=== PATIENT | male | born 1960 | race Caucasian/White ===

== ENCOUNTER 2020-01-06 18:40 | Outpatient (CLI) | payer SELFPAY ==
[2020-01-06 20:22] LABS: Estmated Average Glucose 186; Hemoglobin A1C 8.1 % (4.0-6.0)
[2020-01-06 20:28] LABS: Alanine Aminotransferase 35 U/L (0-41); Alkaline Phosphatase 89 IU/L (40-130); Anion Gap 15.7 (5-19); Aspartate Amino Transferase 32 U/L (0-40); Blood Urea Nitrogen 12 mg/dL (6-20); Calcium 9.5 mg/dL (8.5-10.5); Carbon Dioxide 30 mmol/L (22-29); Chloride 96 mmol/L (98-107); Globulin 3.6 g/dL (1.3-4.6); Glomerular Filtration Rate 99.3 mL/min (90-130); Glucose 118 mg/dL (65-115); Osmolality Calculated 283 mOsm/kg (285-295); Potassium 3.7 mmol/L (3.5-5.1); Sodium 138 mmol/L (136-145); Total Bilirubin 0.4 mg/dL (0.15-1.2); Total Protein 7.6 g/dL (6.6-8.7)
== END 2020-01-06 18:41 | disposition home or self-care (01) ==
LOC: LAB 18:41
PROVIDERS: PCP Family Medicine; Visit Provider General Practice
DX: I10 Essential (primary) hypertension (principal); E78.00 Pure hypercholesterolemia, unspecified; I25.10 Atherosclerotic heart disease of native coronary artery without angina pectoris; K21.9 Gastro-esophageal reflux disease without esophagitis
CPT/HCPCS: 80053; 83036

== ENCOUNTER 2020-07-25 23:07 | Emergency (ER) | payer SELFPAY ==
[2020-07-25 23:12] VITALS: BP 194/106; PULSE 77; RESP 32; TEMP 36.8; O2SAT 94; BMI 43.6
[2020-07-25 23:15] VITALS: BP 194/106; RESP 28; O2SAT 93
--- NOTE | 2020-07-25 23:24 | XR_ITS ---
WS: [id number] XR chest 1V portable [id number] REASON FOR EXAM: syncope FINDINGS: Most recent previous examination of 06/24/2019. The heart and mediastinum are within normal limits. There is a reticular interstitial and groundglass infiltrative density in both the left lower lobe, r ight lower lobe and in the right mid lung peripherally. This is associated with small dense linear ar eas. Moderately severe degenerative spondylosis in the mid and lower thoracic spine. XR/XR chest 1V portable [id number] IMPRESSION: Infiltrates of unknown chronicity as described above. Findings are suspicious f or acute/subacute pneumonitis, particularly Covid.
--- NOTE | 2020-07-25 23:26 | W.ED.SOB ---
HPI - SOB/Dyspnea General: Chief Complaint: Shortness of Breath/Dyspnea Stated Complaint: SOB Time Seen by Provider: 07/25/20 23:16 Source: patient and family (spouse) Mode of arrival: ambulatory Limitations: no limitations History of Present Illness: HPI Narrative: 59-year-old male patient presents to the emergency department with 2 to 3-week history of shortness of breath. He reports worsening symptoms tonight. Can not lay down to sleep due to shortness of breath. He reports mild cough, recent evaluation with his healthcare provider at the [facility], placed on Lasix which helped for 2 to 3 days then stopped working. He reports mild chest pain, intermittent. History of coronary artery disease with stent placement, reports congestive heart failure but has never had symptoms. Denies fever chills, he reports feels full in his lungs. MD elicited complaint: shortness of breath and cough Pertinent past history: COPD, congestive heart failure and other (CAD) Onset (ago): week(s) (2-3) Timing: constant and progressively worsening Severity: moderate Exacerbating factors: lying flat, exertion, coughing and talking Relieving factors: upright position Known history of: COPD and congestive heart failure Associated symptoms: Reports chest congestion, cough and orthopnea; Deny abdominal pain, chest pain, diaphoresis, fever(s), nausea, palpitations or vomiting Treatment prior to arrival: other (lasix) Review of Systems General: Reports: 10 or more systems reviewed and unremarkable except in HPI and below Const: Reports: chills, fatigue and change in sleep pattern; Denies: fever(s), change in appetite, night sweats or diaphoresis Eyes: Denies: change in vision, blurry vision, eye discomfort or eye redness ENMT: Denies: throat pain, hoarseness, swelling of lips/tongue, bleeding gums, dental pain, disequilibrium, nasal discharge, nasal congestion, nasal obstruction or post nasal drip Card: Reports: edema, swelling of feet/ankles, dyspnea on exertion and orthopnea; Denies: chest pain, palpitations, irregular heart rhythm or leg pain with exertion Resp: Reports: chest congestion; Denies: dyspnea, productive cough, non-productive cough or wheezing GI: Reports: early satiety, diarrhea and constipation; Denies: abdominal pain, nausea, vomiting, heartburn, pain on defecation or hematochezia : Denies: dysuria Musc: Denies: neck pain, back pain, joint pain, joint swelling, muscle cramps or muscle weakness Skin/Breast: Denies: rash, pruritus, erythema, changing lesions or changes in skin color Neuro: Denies: headache(s), weakness in extremities or behavioral changes Psych: Denies: anxiety, depression or irritability Gio/Lymph: Denies: easy bruising PFSH ED PFSH: Medical History CAD (coronary artery disease) COPD (chronic obstructive pulmonary disease) Surgical History (Updated 07/25/20 @ 23:33 by DORIS Cruz) H/O umbilical hernia repair Stented coronary artery Social History (Updated 07/26/20 @ 03:50 by DORIS Cruz) Smoking and tobacco status: current every day smoker cigarettes Packs smoked per day: 1 Household members: spouse Marital status: Physical Exam Const: COMMON NORMALS: patient oriented x3, alert and well nourished GENERAL APPEARANCE: cooperative, well kempt, well developed, in distress, anxious and well hydrated; not comfortable NUTRITIONAL APPEARANCE: obese ORIENTATION/CONSCIOUSNESS: Yes awake, Yes oriented to person, Yes oriented to place and Yes oriented to time HENMT: COMMON NORMALS: normocephalic, atraumatic, Normal external nose present and moist oral mucous membranes HEAD & SCALP: normal to inspection, normocephalic and atraumatic NOSE: Normal external nose present MOUTH: Normal oral and palatal mucosa present THROAT: posterior oropharynx normal Eye: COMMON NORMALS: Equal, round and reactive pupils present, EOMs intact bilaterally and conjunctivae normal GENERAL EYE: appearance normal, both eyes and all related structures PERIORBITAL: periorbital findings abnormal positive bilateral (edema) periorbital swelling EYELID: eyelids normal CONJUNCTIVA: Yes conjunctivae normal PUPIL: Yes Equal, round and reactive pupils present Neck/C-Spine: COMMON NORMALS: full ROM and no lymphadenopathy GENERAL: Yes normal visual inspection and Yes trachea midline CERVICAL SPINE: Yes cervical ROM normal Lymph: LYMPHATIC: no lymphadenopathy noted Chest: COMMONS NORMALS: normal inspection of the chest and normal palpation of entire chest wall CHEST: No localized rib tenderness with anteroposterior compression Resp: EFFORT & INSPECTION: Yes symmetric chest movement, Yes tachypneic, Yes respiratory distress, Yes labored, Yes Actively coughing, Yes uses accessory muscles, Yes audible wheezes, No tracheal deviation and No prolonged expiratory phase AUSCULTATION: rhonchi, wheezes and diminished lung sounds bilateral in the lower lung ding Cardio: COMMON NORMALS: regular rate, regular rhythm, S1 normal heart sound present, S2 normal heart sound present and Peripheral pulses 2+ throughout RATE: regular rate RHYTHM: regular rhythm HEART SOUNDS: S1 normal heart sound present and S2 normal heart sound present PERIPHERAL PULSES: Peripheral pulses 2+ throughout GI: INSPECTION: Yes normal to inspection, No abdominal wall ecchymosis, Yes abdominal distension, Yes central obesity, Yes scar, No visible herniation, No visible pulsation and No Fluid wave present PALPATION: Yes Firmness to palpation present (GI) and No Guarding due to palpation present (GI) PERCUSSION: no fluid wave : COMMON NORMALS: Yes no CVA tenderness BLADDER/KIDNEY EXAM: Yes no CVA tenderness Back/Pelvis: COMMON NORMALS: no CVA tenderness and thoracic and lumbar spine normal to inspection Extremity: COMMON NORMALS: normal to inspection and capillary refill normal Neuro: COMMON NORMALS: patient oriented x3 and no focal motor deficits SENSORIUM/ORIENTATION: Yes alert, Yes oriented to person, Yes oriented to place and Yes oriented to time Psych: COMMON NORMALS: mental status grossly normal, Normal thought process present and cooperative APPEARANCE: Yes well kempt ACTIVITY/MOTOR BEHAVIOR: Yes appropriate eye contact THOUGHT PROCESS: Normal thought process present Skin: COMMON NORMALS: no rashes or lesions noted and turgor normal GENERAL SKIN EXAM: no rashes or lesions noted and turgor normal Course ED course: 59-year-old male patient presents to the emergency department with exacerbation of heart failure. Respiratory rate 32-40 upon arrival to the ED with oxygen saturation 90 to 92%. He was placed on BiPAP, 40 mg of Lasix IV administered, diuresed 2000 cc here in the ED, marked improvement noted, BiPAP weaned, O2 saturation 89 to 90%, patient was placed on 2 L nasal cannula with O2 saturation 94 to 97%. CT scan of the chest with IV contrast, CTA PE protocol with pulmonary edema and bilateral small pleural effusions. BNP was noted to be elevated, 790. Post Lasix administration, facial edema, abdominal firmness improved, patient reports feeling better. Patient was updated on serology and radiology testing with plan of care for admission due to respiratory distress he encountered upon arrival. He is not able to tolerate nitroglycerin topically, developed skin itching, NTG removed and itching resolved. I discussed with Dr. Koehler findings of serology and radiology results as well as patient progression that occurred here in the ED. Consultations: Consultation #1: Dr Koehler- [facility] discussed, serology and radiology results discussed, discussed tachypnea, rate 32-40 upon arrival to the ED, now off BiPAP and much improved, diuresed 2000 cc after 40 mg Lasix IV administered. Agrees to admit due to tachypnea, respiratory distress and CHF exacerbation. Time: 03:30 Vital Signs: Vital signs: Vital Signs Temperature 98.2 F 07/25/20 23:12 Pulse Rate 70 07/26/20 03:13 Respiratory Rate 19 H 07/26/20 03:13 Blood Pressure 148/70 07/26/20 03:13 Pulse Oximetry 98 07/26/20 03:13 MDM - SOB/Dyspnea Lab Data: Labs: Lab Results 07/26/20 07/26/20 07/26/20 Range/Units 00:00 00:00 00:00 WBC 6.5 (4.0-10.0) 10^3/ uL RBC 5.16 (4.1-5.3) 10^6/u L Hgb 14.8 (11.7-16.6) g/dL Hct 47.6 (42.0-52.0) % MCV 92.2 (80-94) fL MCH 28.7 (28.0-34.0) pg MCHC 31.1 (30.0-36.0) g/dL RDW 14.3 (12.1-15.1) % Plt Count 158 (130-400) 10^3/c mm MPV 10.6 H (7.4-10.4) fL Neut % (Auto) 69.4 % Lymph % (Auto) 19.8 % [place] % (Auto) 7.9 % Eos % (Auto) 1.9 % Baso % (Auto) 0.5 % Neut # (Auto) 4.49 (1.8-7.7) 10^3/u L Lymph # (Auto) 1.3 (0.8-4.8) 10^3/u L [place] # (Auto) 0.5 (0.2-0.9) 10^3/u L Eos # (Auto) 0.1 (0.0-0.8) 10^3/u L Baso # (Auto) 0.0 (0.0-0.1) 10^3/u L Nucleated RBC % (a uto) 0 % Nucleated RBCs # 0.0 /100WBC PT 13.50 (12.1-14.9) SECO NDS INR 1.00 (0.8-1.2) APTT 30.7 (23.9-36.7) SECO NDS D-Dimer 0.71 H (0-0.59) ug/mIFE U Specimen Type Sample Site ABG pH (7.35-7.45) ABG pCO2 (35-45) mmHg ABG pO2 (80.0-100.0) mmH g ABG HCO3 (22-26) mmol/L ABG O2 Saturation ABG Base Excess (-2.0-2.0) mmol/ L Nathanael Test A-a O2 Gradient (5-10) mmHg Hematocrit (42-52) % Hgb O2 Saturation (95-100) % Carboxyhemoglobin (0.4-20.1) %THgb Methemoglobin (0.4-1.5) % Total Hemoglobin (14-18) g/dL Ionized Calcium (1.1-1.4) mmol/L O2 Delivery Device FiO2 % Continuous Improvement Lead ID Sodium 137 (136-145) mmol/L Potassium 4.0 (3.5-5.1) mmol/L Chloride 99 (98-107) mmol/L Carbon Dioxide 29 (22-29) mmol/L Anion Gap 13.0 (5-19) BUN 16 (6-20) mg/dL Creatinine 0.8 (0.7-1.2) mg/dL GFR Calculation 99.3 (90-130) mL/min Glucose 122 H (65-115) mg/dL Calculated Osmolal ity 286 (285-295) mOsm/k g Lactate (0.5-2.2) mmol/L Calcium 8.3 L (8.5-10.5) mg/dL Total Bilirubin 0.7 (0.15-1.2) mg/dL AST 19 (0-40) U/L ALT 29 (0-41) U/L Alkaline Phosphata se 82 (40-130) IU/L Troponin T Baselin e (0-15) ng/L Troponin T 120 Min [place] (0-15) ng/L Delta Troponin T (0-10) ABS# NT-Pro-B Natriuret Pep 790 H (0-125) pg/mL Total Protein 6.7 (6.6-8.7) g/dL Albumin 3.9 (3.5-5.2) g/dL Globulin 2.8 (1.3-4.6) g/dL Lipase 22 (13-60) U/L 07/26/20 07/26/20 07/26/20 Range/Units 00:00 00:00 01:10 WBC (4.0-10.0) 10^3/ uL RBC (4.1-5.3) 10^6/u L Hgb (11.7-16.6) g/dL Hct (42.0-52.0) % MCV (80-94) fL MCH (28.0-34.0) pg MCHC (30.0-36.0) g/dL RDW (12.1-15.1) % Plt Count (130-400) 10^3/c mm MPV (7.4-10.4) fL Neut % (Auto) % Lymph % (Auto) % [place] % (Auto) % Eos % (Auto) % Baso % (Auto) % Neut # (Auto) (1.8-7.7) 10^3/u L Lymph # (Auto) (0.8-4.8) 10^3/u L [place] # (Auto) (0.2-0.9) 10^3/u L Eos # (Auto) (0.0-0.8) 10^3/u L Baso # (Auto) (0.0-0.1) 10^3/u L Nucleated RBC % (a uto) % Nucleated RBCs # /100WBC PT (12.1-14.9) SECO NDS INR (0.8-1.2) APTT (23.9-36.7) SECO NDS D-Dimer (0-0.59) ug/mIFE U Specimen Type Arterial Sample Site Radial, right ABG pH 7.38 (7.35-7.45) ABG pCO2 50.4 H (35-45) mmHg ABG pO2 75.7 L (80.0-100.0) mmH g ABG HCO3 29.9 H (22-26) mmol/L ABG O2 Saturation 96.0 ABG Base Excess 3.5 H (-2.0-2.0) mmol/ L Nathanael Test Pos A-a O2 Gradient 8.0 (5-10) mmHg Hematocrit 47.8 (42-52) % Hgb O2 Saturation 91.8 L (95-100) % Carboxyhemoglobin 3.6 (0.4-20.1) %THgb Methemoglobin 0.8 (0.4-1.5) % Total Hemoglobin 15.6 (14-18) g/dL Ionized Calcium 1.0 L (1.1-1.4) mmol/L O2 Delivery Device Bipap FiO2 28.0 % Continuous Improvement Lead ID Jlg Sodium 140.0 (136-145) mmol/L Potassium 3.6 (3.5-5.1) mmol/L Chloride (98-107) mmol/L Carbon Dioxide (22-29) mmol/L Anion Gap (5-19) BUN (6-20) mg/dL Creatinine (0.7-1.2) mg/dL GFR Calculation (90-130) mL/min Glucose 122.0 H (65-115) mg/dL Calculated Osmolal ity (285-295) mOsm/k g Lactate 1.3 (0.5-2.2) mmol/L Calcium (8.5-10.5) mg/dL Total Bilirubin (0.15-1.2) mg/dL AST (0-40) U/L ALT (0-41) U/L Alkaline Phosphata se (40-130) IU/L Troponin T Baselin e 18 H (0-15) ng/L Troponin T 120 Min [place] (0-15) ng/L Delta Troponin T (0-10) ABS# NT-Pro-B Natriuret Pep (0-125) pg/mL Total Protein (6.6-8.7) g/dL Albumin (3.5-5.2) g/dL Globulin (1.3-4.6) g/dL Lipase (13-60) U/L 07/26/20 Range/Units 01:50 WBC (4.0-10.0) 10^3/ uL RBC (4.1-5.3) 10^6/u L Hgb (11.7-16.6) g/dL Hct (42.0-52.0) % MCV (80-94) fL MCH (28.0-34.0) pg MCHC (30.0-36.0) g/dL RDW (12.1-15.1) % Plt Count (130-400) 10^3/c mm MPV (7.4-10.4) fL Neut % (Auto) % Lymph % (Auto) % [place] % (Auto) % Eos % (Auto) % Baso % (Auto) % Neut # (Auto) (1.8-7.7) 10^3/u L Lymph # (Auto) (0.8-4.8) 10^3/u L [place] # (Auto) (0.2-0.9) 10^3/u L Eos # (Auto) (0.0-0.8) 10^3/u L Baso # (Auto) (0.0-0.1) 10^3/u L Nucleated RBC % (a uto) % Nucleated RBCs # /100WBC PT (12.1-14.9) SECO NDS INR (0.8-1.2) APTT (23.9-36.7) SECO NDS D-Dimer (0-0.59) ug/mIFE U Specimen Type Sample Site ABG pH (7.35-7.45) ABG pCO2 (35-45) mmHg ABG pO2 (80.0-100.0) mmH g ABG HCO3 (22-26) mmol/L ABG O2 Saturation ABG Base Excess (-2.0-2.0) mmol/ L Nathanael Test A-a O2 Gradient (5-10) mmHg Hematocrit (42-52) % Hgb O2 Saturation (95-100) % Carboxyhemoglobin (0.4-20.1) %THgb Methemoglobin (0.4-1.5) % Total Hemoglobin (14-18) g/dL Ionized Calcium (1.1-1.4) mmol/L O2 Delivery Device FiO2 % Continuous Improvement Lead ID Sodium (136-145) mmol/L Potassium (3.5-5.1) mmol/L Chloride (98-107) mmol/L Carbon Dioxide (22-29) mmol/L Anion Gap (5-19) BUN (6-20) mg/dL Creatinine (0.7-1.2) mg/dL GFR Calculation (90-130) mL/min Glucose (65-115) mg/dL Calculated Osmolal ity (285-295) mOsm/k g Lactate (0.5-2.2) mmol/L Calcium (8.5-10.5) mg/dL Total Bilirubin (0.15-1.2) mg/dL AST (0-40) U/L ALT (0-41) U/L Alkaline Phosphata se (40-130) IU/L Troponin T Baselin e (0-15) ng/L Troponin T 120 Min [place] 17.28 H (0-15) ng/L Delta Troponin T -0.72 L (0-10) ABS# NT-Pro-B Natriuret Pep (0-125) pg/mL Total Protein (6.6-8.7) g/dL Albumin (3.5-5.2) g/dL Globulin (1.3-4.6) g/dL Lipase (13-60) U/L Imaging Data^: CT Chest: Radiologist's impression: [address] [address] [address] Scan Report Signed Patient: Stephen Garrett Unit #: [id number] : 1960 Age/Sex: 59 / M ADM Date: 07/25/20 Loc: ER Room/Bed: Attending Dr: Ordering Provider/Ordering MD: Elvira See Date of Service: 07/26/20 Procedure(s): CT angio chest PE protcl [id number] Accession Number(s): [id number] Report Number: [id number] PROCEDURE INFORMATION: Exam: CT Angiography Chest With Contrast Exam date and time: 07/26/2020 1:04 AM Age: 59 years old Clinical indication: Dyspnea and shortness of breath; Prior surgery; Surgery type: Cardiac stent; Patient HX: SOB and dyspnea. Elevated ddimer; Additional info: SOB, elevated d-dimer TECHNIQUE: Imaging protocol: Computed tomographic angiography of the chest with intravenous contrast. 3D rendering (Not supervised by radiologist): MIP and/or 3D reconstructed images were created by the technologist. Radiation optimization: All CT scans at this facility use at least one of these dose optimization techniques: automated exposure control; mA and/or kV adjustment per patient size (includes targeted exams where dose is matched to clinical indication); or iterative reconstruction. Contrast material: OMNI 350; Contrast volume: 68 ml; Contrast route: INTRAVENOUS (IV); COMPARISON: CTA Chest-Pulmonary Emb [id number] 05/09/2017 11:32 PM RADIATION DOSE METRICS: Total DLP (mGy-cm): 908.48 FINDINGS: Pulmonary arteries: No pulmonary embolus. Aorta: Unremarkable. No aortic aneurysm. No aortic dissection. Lungs: Mild pulmonary edema is noted. Bibasilar subsegmental atelectasis is appreciated. Pleural space: Small bilateral pleural effusions are noted. No pneumothorax. Heart: The heart is normal in size. Coronary artery calcifications are noted. Lymph nodes: Mild right hilar and mediastinal lymphadenopathy is noted. Bones/joints: Unremarkable. No acute fracture. Soft tissues: Unremarkable. CT/CT angio chest PE protcl [id number] IMPRESSION: 1. No pulmonary embolus. 2. Mild pulmonary edema and small bilateral pleural effusions. 3. Coronary arteries disease. Radiation Dose CTDIVOL = (mGy): DLP = 908.48 (mGy-cm) Dictated By: Tyron Price MD Signed By: Tyron Price MD Signed Date/Time: 07/26/20250 DD/ 9 EKG Data^: EKG 1: EKG Interpretation Date: 07/25/20 EKG interpretation time: 23:25 Other EKG Comments: Sinus rhythm, possible anterior myocardial infarction, abnormal ECG, ventricular rate 72 EKG 2: EKG Interpretation Date: 07/26/20 EKG interpretation time: 02:43 Prior EKG tracings: available for review Other EKG Comments: Sinus rhythm, abnormal ECG, ventricular rate 66 Discharge Plan Discharge Referrals: [facility], [Primary Care Provider] - Coding Level of Care Code ED Small Business Banking Officer for Chg Fwd Exam Comprehensive
[2020-07-25 23:30] VITALS: BP 189/85; PULSE 86; RESP 22; O2SAT 93
[2020-07-25 23:55] VITALS: RESP 24; O2SAT 100
[2020-07-25] MEDS: morphine 4 mg/mL SDV 1 mL IVP (23:55)
[2020-07-26] VITALS (7 sets, daily range): BP systolic 148–162; BP diastolic 70–79; PULSE 66–92; RESP 13–24; O2SAT 92–100
[2020-07-26] MEDS: FUROsemide 10 mg/mL SDV 4mL 40 MG IVP (00:25)
[2020-07-26] MEDS: nitroglycerin 1 gm/inch oint Pkt 1 INCH TOPICAL (00:33)
[2020-07-26 00:53] LABS: Basophils % 0.5 %; D Dimer 0.71 ug/mIFEU (0-0.59); Eosinophils # 0.1 10^3/uL (0.0-0.8); Eosinophils % 1.9 %; Hematocrit 47.6 % (42.0-52.0); Hemoglobin 14.8 g/dL (11.7-16.6); Lymphocytes # 1.3 10^3/uL (0.8-4.8); Lymphocytes % 19.8 %; Mean Corpuscular HGB Conc 31.1 g/dL (30.0-36.0); Mean Corpuscular Hemoglobin 28.7 pg (28.0-34.0); Mean Corpuscular Volume 92.2 fL (80-94); Mean Platelet Volume 10.6 fL (7.4-10.4); Monocytes # 0.5 10^3/uL (0.2-0.9); Monocytes % 7.9 %; Neutrophils # 4.49 10^3/uL (1.8-7.7); Neutrophils % 69.4 %; Nucleated Red Blood Cells % 0 %; Platelet Count 158 10^3/cmm (130-400); Red Blood Count 5.16 10^6/uL (4.1-5.3); Red Cell Distribution Width 14.3 % (12.1-15.1); White Blood Count 6.5 10^3/uL (4.0-10.0)
--- NOTE | 2020-07-26 00:58 | CTR_ITS ---
PROCEDURE INFORMATION: Exam: CT Angiography Chest With Contrast Exam date and time: 07/26/2020 1:04 AM Age: 59 years old Clinical indication: Dyspnea and shortness of breath; Prior surgery; Surgery type: Cardiac stent; Patient HX: SOB and dyspnea. Elevated ddimer; Additional info: SOB, elevated d-dimer TECHNIQUE: Imaging protocol: Computed tomographic angiography of the chest with intravenous contrast. 3D rendering (Not supervised by radiologist): MIP and/or 3D reconstructed images were created by the technologist. Radiation optimization: All CT scans at this facility use at least one of these dose optimization techniques: automated exposure control; mA and/or kV adjustment per patient size (includes targeted exams where dose is matched to clinical indication); or iterative reconstruction. Contrast material: OMNI 350; Contrast volume: 68 ml; Contrast route: INTRAVENOUS (IV); COMPARISON: CTA Chest-Pulmonary Emb [id number] 05/09/2017 11:32 PM RADIATION DOSE METRICS: Total DLP (mGy-cm): 908.48 FINDINGS: Pulmonary arteries: No pulmonary embolus. Aorta: Unremarkable. No aortic aneurysm. No aortic dissection. Lungs: Mild pulmonary edema is noted. Bibasilar subsegmental atelectasis is appreciated. Pleural space: Small bilateral pleural effusions are noted. No pneumothorax. Heart: The heart is normal in size. Coronary artery calcifications are noted. Lymph nodes: Mild right hilar and mediastinal lymphadenopathy is noted. Bones/joints: Unremarkable. No acute fracture. Soft tissues: Unremarkable. CT/CT angio chest PE protcl [id number] IMPRESSION: 1. No pulmonary embolus. 2. Mild pulmonary edema and small bilateral pleural effusions. 3. Coronary arteries disease. Radiation Dose CTDIVOL = (mGy): DLP = 908.48 (mGy-cm)
[2020-07-26 01:00] LABS: Lactate (Lactic Acid level) 1.3 mmol/L (0.5-2.2)
[2020-07-26 01:02] LABS: Troponin(5th) Baseline 18 ng/L (0-15)
[2020-07-26 01:03] LABS: Partial Thromboplastin Time 30.7 SECONDS (23.9-36.7)
[2020-07-26 01:10] LABS: Alanine Aminotransferase 29 U/L (0-41); Albumin Level 3.9 g/dL (3.5-5.2); Alkaline Phosphatase 82 IU/L (40-130); Aspartate Amino Transferase 19 U/L (0-40); Blood Urea Nitrogen 16 mg/dL (6-20); Calcium 8.3 mg/dL (8.5-10.5); Carbon Dioxide 29 mmol/L (22-29); Chloride 99 mmol/L (98-107); Globulin 2.8 g/dL (1.3-4.6); Glomerular Filtration Rate 99.3 mL/min (90-130); Glucose 122 mg/dL (65-115); Lipase 22 U/L (13-60); NT Pro B Type Natriuretic Pept 790 pg/mL (0-125); Osmolality Calculated 286 mOsm/kg (285-295); Sodium 137 mmol/L (136-145); Total Bilirubin 0.7 mg/dL (0.15-1.2); Total Protein 6.7 g/dL (6.6-8.7)
[2020-07-26 01:21] LABS: ABG PCO2 50.4 mmHg (35-45); ABG PH Result 7.38 (7.35-7.45); Arterial Blood Gas Hematocrit 47.8 % (42-52); Base Excess ABG 3.5 mmol/L (-2.0-2.0); Blood Gas Allen Test Pos; Blood Gas Sample Site Radial, right; Blood Gas Sample Type Arterial; Carboxyhemoglobin 3.6 %THgb (0.4-20.1); HCO3 ABG 29.9 mmol/L (22-26); HGB O2 Sat 91.8 % (95-100); Methemoglobin 0.8 % (0.4-1.5); PO2 ABG 75.7 mmHg (80.0-100.0); Potassium Level - ABG 3.6 mmol/L (3.5-5.0); Total Hemoglobin 15.6 g/dL (14-18)
[2020-07-26 01:23] LABS: Oxygen Device BIPAP
--- NOTE | 2020-07-26 01:25 | ECG_ITS ---
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 Measurements Intervals Transfer Rate: 66 P: 45 SD: 177 QRS: -33 QRSD: 102 T: 63 QT: 427 QTc: 449 Interpretive Statements SINUS RHYTHM MARKED LEFT AXIS DEVIATION [QRS AXIS < -30] ANTEROSEPTAL MYOCARDIAL INFARCTION [40+ ms Q WAVE IN V1-V4], OF INDETERMINATE AGE Diffuse nonspecific T wave changes compared to ECG 06/24/2019 12:52:53 Left-axis deviation now present Myocardial infarct finding now present Sinus bradycardia no longer present Electronically Signed On 07-26-2020 9:56:43 ENGLISH TEACHER by Lynette Kenyon M.D. [id number]
--- NOTE | 2020-07-26 01:26 | PC.NURSE ---
pt ECG leads readjusted
[2020-07-26] MEDS: iohexol 350 mg/mL 100 mL Btl IV (01:39)
[2020-07-26 02:28] LABS: Troponin 5 2HR 17.28 ng/L (0-15)
[2020-07-26 02:51] LABS: Troponin 5 2HR Delta -0.72 ABS# (0-10)
--- NOTE | 2020-07-26 03:38 | P.HP_ITS ---
Providers/Chief Complaint Primary Care Provider: [facility] Chief Complaint: SOB History of Present Illness Stephen Garrett is a 59 year old male Medications/Allergies Allergies Allergy/AdvReac Type Severity Reaction Status Date / Time No Known Allergies Allergy Verified 07/25/20 23:13 PFSH Acute PFSH: Medical History CAD (coronary artery disease) COPD (chronic obstructive pulmonary disease) Surgical History (Updated 07/25/20 @ 23:33 by DORIS Cruz) H/O umbilical hernia repair Stented coronary artery Vitals/I&O/Wt Last Vital Signs Temp 98.2 F 07/25/20 23:12 Pulse 70 07/26/20 03:13 Resp 19 H 07/26/20 03:13 BP 148/70 07/26/20 03:13 Pulse Ox 98 07/26/20 03:13 Weight last 48 hrs Weight 115.212 kg Data : 07/26/20 00:00 07/26/20 00:00 Coding Level of Care Code Acute Supervisor Capacitor Processing for Bro Tapia
--- NOTE | 2020-07-26 04:49 | PC.NURSE ---
This RN agrees with deputy sheriff k9 handler assessment
== END 2020-07-26 04:50 | disposition home or self-care (01) ==
PROVIDERS: Emergency Provider Nurse Practitioner Family
DX: R06.02 Shortness of breath (principal); I25.10 Atherosclerotic heart disease of native coronary artery without angina pectoris; J44.9 Chronic obstructive pulmonary disease, unspecified; F17.210 Nicotine dependence, cigarettes, uncomplicated
CPT/HCPCS: 12345; 36600; 71045; 71275; 80051; 80053; 82330; 82805; 83605; 83690; 83880; 84484; 85025; 85378; 85610; 85730; 93005; 94660; 96374; 99283; 99284; J1940; J2270; Q9967

== ENCOUNTER 2020-10-10 15:40 | Outpatient (CLI) | payer OTHER, SELFPAY ==
--- NOTE | 2020-10-10 15:45 | USCV_ITS ---
Stephen Garrett Age: 59 Gender: M : 1960 Exam Date: 10/10/2020 15:57 Ordering Phys: Juanita Mcdonald MD ([email or web address]) Technologist: Kelly Mayo [place] [facility] [place]ication: HEART FAILURE BP: 165 / 86 HR: 69 Rhythm: Sinus Technical Quality: ADEQUATE MEASUREMENTS (Male / Female) Normal Values 2D ECHO LV Diastolic Diameter PLAX 5.8 cm 4.2 - 5.9 / 3.9 - 5.3 cm LV Systolic Diameter PLAX 4.1 cm LV Chamber Size 4.2 cm IVS Diastolic Thickness 1.0 cm 0.6 - 1.0 / 0.6 - 0.9 cm IVS Systolic Thickness 1.4 cm LVPW Diastolic Thickness 0.9 cm 0.6 - 1.0 / 0.6 - 0.9 cm LVPW Systolic Thickness 1.9 cm RV Chamber Size 3.3 cm LVOT Diameter 2.0 cm LV Ejection Fraction 2D Teich 54.8 % LA Diameter 4.0 cm LA Width 3.2 cm LA Height 5.0 cm RA Width 2.5 cm RA Height 4.1 cm M-MODE LV Diastolic Diameter MM 5.7 cm 4.2 - 5.9 / 3.9 - 5.3 cm LV Systolic Diameter MM 3.9 cm LV Ejection Fraction MM Teich 58.7 % IVS Diastolic Thickness MM 0.9 cm 0.6 - 1.0 / 0.6 - 0.9 cm IVS Systolic Thickness MM 1.5 cm LVPW Diastolic Thickness MM 0.9 cm 0.6 - 1.0 / 0.6 - 0.9 cm LVPW Systolic Thickness MM 1.5 cm Aortic Annulus Diameter 3.0 cm LA Ao Ratio MM 1.4 MV E Point Septal Separation 1.6 cm DOPPLER AV Peak Velocity 183.0 cm/s LVOT Peak Velocity 75.0 cm/s AV Area Cont Eq vti 1.3 cm squared AV Area Cont Eq pk 1.3 cm squared MV Area PHT 3.9 cm squared Mitral E to A Ratio 1.7 MV E' Velocity 62.5 cm/s Mitral E to MV E' Ratio 19.7 Mitral E to LV E' Lateral Ratio 17.4 Mitral E to LV E' Septal Ratio 22.7 PV Peak Velocity 68.0 cm/s RV Acceleration Time 0.1 s RV Ejection Time 0.2 s RV AcT/ET 0.4 FINDINGS Left Ventricle Left ventricle is upper limit of normal size. LV ejection fraction around 55%.Grade III/IV diastolic dysfunction (restrictive filling pattern), severely elevated filling pressures. Right Ventricle The right ventricle is normal in size and function. Right Atrium Normal right atrial size. Left Atrium Mildly increased left atrial size. Mitral Valve Structurally normal mitral valve without significant stenosis or prolapse. There is no mitral regurgitation. Aortic Valve Trace to mild aortic valve regurgitation. Thickened aortic valve. Tricuspid Valve No gross abnormalities noted Pulmonic Valve No gross abnormalities noted Pericardium Normal pericardium without effusion. Aorta Normal ascending aorta dimension. CONCLUSIONS Left ventricle is upper limit of normal size. LV ejection fraction around 55%. Grade III/IV diastolic dysfunction (restrictive filling pattern), severely elevated filling pressures. Mildly increased left atrial size. Structurally normal mitral valve without significant stenosis or prolapse. There is no mitral regurgitation. Trace to mild aortic valve regurgitation. Thickened aortic valve. There is no pericardial effusion. There are no intracardiac masses. No previous study is available for comparison. Dr Lynette Kenyon MD [facility] (Electronically Signed) Final Date: 12 October 2020 09:02 S
== END 2020-10-10 15:41 | disposition home or self-care (01) ==
LOC: RAD 15:40
PROVIDERS: Visit Provider Internal Medicine Cardiovascular Disease
DX: I50.9 Heart failure, unspecified (principal); I35.1 Nonrheumatic aortic (valve) insufficiency
CPT/HCPCS: 80048; 83880; 87635; 93306

== ENCOUNTER 2020-10-17 14:11 | Outpatient (CLI) | payer OTHER, SELFPAY ==
--- NOTE | 2020-10-17 14:38 | PFTS_ITS ---
Date of Study:10/17/20 Date of Dictation: MECHANICS: Forced vital capacity (FVC) is reduced. Forced expiratory volume in one second (FEV1) is reduced. FEV1/FVC is normal. FLOW VOLUME LOOP: Narrowed with mild scooping. LUNG VOLUMES: Total lung capacity (TLC) is normal. Residual volume (RV) is elevated. DIFFUSING CAPACITY FOR CARBON MONOXIDE: Normal. INTERPRETATION: The pulmonary function tests are consistent with nonspecific ventilatory limitation. The prebronchodilator spirometry is consistent with mild restriction however, the lung volume measurements do not support any restrictive lung disease. This is likely secondary to a combination of obstructive and restrictive ventilatory defects. Lung volumes are consistent with air trapping. Gas exchange (DLCO) is normal. MTDD
== END 2020-10-17 14:12 | disposition home or self-care (01) ==
LOC: RT 14:13
PROVIDERS: Visit Provider Internal Medicine Pulmonary Disease
DX: R06.02 Shortness of breath (principal)
CPT/HCPCS: 94010; 94726; 94729

== ENCOUNTER → 2021-01-30 13:28 | Outpatient (BNVA) | payer OTHER, SELFPAY | PROVIDERS: Visit Provider Orthopaedic Surgery | DX: M54.2 Cervicalgia (principal); M48.02 Spinal stenosis, cervical region | CPT/HCPCS: 72050 ==

== ENCOUNTER 2021-02-22 15:29 | Outpatient (CLI) | payer OTHER, SELFPAY ==
--- NOTE | 2021-02-22 16:00 | MR_ITS ---
WS: [id number] MRI CERVICAL SPINE NONCONTRAST HISTORY: M48.02 - Spinal stenosis, cervical region COMPARISON: 01/30/2021 Technique: Multiplanar, multisequence noncontrast imaging of the cervical spine. Mild straightening of the normal cervical lordosis. Mild disc desiccation and narrowing most significant at C5-6 and C6-7. Signal within the cord is norm al. Craniocervical junction, C1 and C2 relationship, odontoid process and soft tissues are normal. C2-C3: Moderate size central disc protrusion with near contact on the ventral cervical cord. Very mil d central and foraminal stenosis. C3-C4: Mild bilateral facet joint arthritis. Small foraminal osteophytes without stenosis. C4-C5: Mild annular disc bulging and osteophytic ridging with facet arthritis. Very mild LEFT foramin al narrowing. C5-C6: Moderate annular disc bulging and osteophytic ridging. Central disc protrusion. Moderate size disc osteophyte complex in the LEFT foramen. An additional moderate size disc osteophyte complex in t he RIGHT foramen. Moderate central with moderate to severe bilateral foraminal stenosis. Stenosis ledbetter s appear slightly greater on the RIGHT. C6-C7: Diffuse annular disc bulging and osteophytic ridging. Mild central stenosis with moderate bila teral foraminal stenosis, RIGHT greater than LEFT. C7-T1: Mild annular disc bulging with very mild encroachment into the RIGHT foramen. Paraspinal soft tissue are normal. MR/MR cervical spin wo con* [id number] IMPRESSION: 1. Moderate central with moderate to severe bilateral foraminal stenosis, RIGH T greater than LEFT at C5-6. 2. Mild central and moderate bilateral foraminal stenosis, RIGHT greater than LEFT at C6-7. 3. Central disc protrusion at C2-3 with mild central and foraminal stenosis. 4. Multilevel mild to moderate facet arthritis throughout the cervical spine.
== END 2021-02-22 15:30 | disposition home or self-care (01) ==
LOC: RADSHAW 15:32
PROVIDERS: PCP Family Medicine; Visit Provider Orthopaedic Surgery
DX: M48.02 Spinal stenosis, cervical region (principal); M50.21 Other cervical disc displacement, high cervical region; M47.812 Spondylosis without myelopathy or radiculopathy, cervical region
CPT/HCPCS: 72141

== ENCOUNTER 2021-05-02 20:44 | Emergency (ER) | payer OTHER, SELFPAY ==
[2021-05-02 21:02] VITALS: BP 144/78; PULSE 74; RESP 20; TEMP 36.2; O2SAT 95; BMI 41.3
--- NOTE | 2021-05-02 21:15 | XRR_ITS ---
PROCEDURE INFORMATION: Exam: XR Chest Exam date and time: 05/02/2021 9:15 PM Age: 60 years old Clinical indication: Cough and shortness of breath; Additional info: Dyspnea TECHNIQUE: Imaging protocol: XR of the chest. Views: 1 view. COMPARISON: CR XR chest 1V portable [id number] 07/25/2020 11:24 PM FINDINGS: Lungs: Unremarkable. No consolidation. Pleural spaces: Unremarkable. No pleural effusion. No pneumothorax. Heart/Mediastinum: Unremarkable. No cardiomegaly. Bones/joints: Unremarkable. XR/XR chest 1V portable [id number] IMPRESSION: No acute disease.
--- NOTE | 2021-05-02 21:15 | ECG_ITS ---
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 Measurements Intervals [place] Rate: 73 P: 47 [place]: 188 QRS: 32 QRSD: 104 T: -7 QT: 407 QTc: 450 Interpretive Statements SINUS RHYTHM LOW QRS VOLTAGE IN PRECORDIAL LEADS [QRS DEFLECTION < 1.0 mV IN CHEST LEADS] ANTEROSEPTAL MYOCARDIAL INFARCTION , OF INDETERMINATE AGE [40+ ms Q WAVE IN V1-V4] INTERPRETATION BASED ON A DEFAULT AGE OF 40 YEARS Compared to ECG 07/26/2020 02:42:34 Low QRS voltage now present Left-axis deviation no longer present T-wave abnormality no longer present Myocardial infarct finding still present Electronically Signed On 05-02-2021 23:34:57 CDT by Lynette Kenyon M.D. [id number]
--- NOTE | 2021-05-02 21:40 | ED_ITS ---
Documented by User: Carlos A Womack MD 05/04/21 14:12 HPI - General Adult General: Chief complaint: General Medical Stated complaint: coughing, sob Time Seen by Provider: 05/02/21 21:38 History of Present Illness: HPI narrative: Mr. Garrett is a 60-year-old gentleman with complex past medical history including hypertension, hyperlipidemia, diabetes, CAD status post PCI, heart failure with preserved ejection fraction who presents emergency department due to generalized malaise. He has been at his baseline health however woke up this morning with headache, shortness of breath, cough, aches and pains, chills, and nausea. Additionally has noted some lower extremity swelling. Overall the course of symptoms is worsening. The intensity is moderate. He has tried home medications without significant relief. He reports compliance with his medication regimen with exception of COPD medications (Spiriva) which she cannot currently afford and has been out of for approximately 1 month. He has been vaccinated against Covid and has no known sick contacts. 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 No acute distress. Eyes - PERRL, no conjunctival injection ENMT - Atraumatic external nose and ears. Moist mucous membranes NECK - supple. trachea midline CARDIOVASCULAR - regular rate and rhythm. Peripheral pulses 2+ and equal RESPIRATORY -mildly course to auscultation bilaterally. No retractions or accessory muscle use. ABDOMEN/GI - Nontender/Nondistended. No tenderness to percussion or evidence of peritonitis MSK - Extremities without obvious deformity or tenderness to palpation SKIN - Warm, Dry NEURO - alert and appropriately oriented. Moves all extremities equally. PSYCH - Appropriate mood and affect Course ED course: - Patient was seen and evaluated by me at bedside - Patient placed on cardiac monitors, IV access obtained - Initial evaluation notable for mildly ill appearance, no acute distress. - Patient history likely COPD exacerbation versus infectious etiology - Chest x-ray without lobar consolidation - Labs pending - Patient care handed off to Dr Wright pending completion of laboratory studies Vital Signs: Vital signs: Vital Signs Temperature 97.2 F L 05/02/21 21:02 Pulse Rate 73 05/03/21 00:39 Respiratory Rate 20 H 05/03/21 00:39 Blood Pressure 148/78 05/03/21 00:39 Pulse Oximetry 97 05/03/21 00:39 MDM - General Adult Medical Records: Attestation: I reviewed the patient's medical records. Lab Data: Attestation: I reviewed the patient's lab results. Labs: Lab Results 05/02/21 05/02/21 05/02/21 22:35 22:35 22:35 WBC 6.0 10^3/uL 10^3/ uL (4.0-10.0) RBC 4.86 10^6/uL 10^6 /uL (4.1-5.3) Hgb 14.6 g/dL g/dL (11.7-16.6) Hct 45.4 % % (42.0-52.0) MCV 93.4 fl fl (80-94) MCH 30.0 pg pg (28.0-34.0) MCHC 32.2 g/dL g/dL (30.0-36.0) RDW 13.8 % % (12.1-15.1) Plt Count 165 10^3/cmm 10^3 /cmm (130-400) MPV 9.7 fL fL (7.4-10.4) Neut % (Auto) 66.7 % % Lymph % (Auto) 21.7 % % [place] % (Auto) 8.8 % % Eos % (Auto) 1.8 % % Baso % (Auto) 0.7 % % Neut # (Auto) 4.03 10^3/uL 10^3 /uL (1.8-7.7) Lymph # (Auto) 1.3 10^3/uL 10^3/ uL (0.8-4.8) [place] # (Auto) 0.5 10^3/uL 10^3/ uL (0.2-0.9) Eos # (Auto) 0.1 10^3/uL 10^3/ uL (0.0-0.8) Baso # (Auto) 0.0 10^3/uL 10^3/ uL (0.0-0.1) Nucleated RBC % (a uto) 0 % % Nucleated RBCs # 0.0 /100WBC /100W BC Sodium 139 mmol/L mmol/L (136-145) Potassium 3.5 mmol/L mmol/L (3.5-5.1) Chloride 99 mmol/L mmol/L (98-107) Carbon Dioxide 29 mmol/L mmol/L (22-29) Anion Gap 14.5 (5-19) BUN 13 mg/dL mg/dL (6-20) Creatinine 0.9 mg/dL mg/dL (0.7-1.2) GFR Calculation 86.4 mL/min L mL/ min (90-130) Glucose 99 mg/dL mg/dL (65-115) Calculated Osmolal ity 288 mOsm/kg mOsm/ kg (285-295) Calcium 7.7 mg/dL L mg/dL (8.5-10.5) Total Bilirubin 0.4 mg/dL mg/dL (0.15-1.2) AST 25 U/L U/L (0-40) ALT 28 U/L U/L (0-41) Alkaline Phosphata se 74 IU/L IU/L (40-130) Troponin T Baselin e 15 ng/L ng/L (0-15) Troponin T 120 Min [place] Troponin T C-Reactive Protein 7.0 mg/L H mg/L (0.0-4.9) NT-Pro-B Natriuret Pep 224 pg/mL H pg/mL (0-125) Total Protein 6.9 g/dL g/dL (6.6-8.7) Albumin 3.8 g/dL g/dL (3.5-5.2) Globulin 3.1 g/dL g/dL (1.3-4.6) Procalcitonin 0.09 ng/mL ng/mL (0-0.5) SARS-CoV-2 Ag (Rap id) 05/02/21 05/02/21 23:00 23:40 WBC RBC Hgb Hct MCV MCH MCHC RDW Plt Count MPV Neut % (Auto) Lymph % (Auto) [place] % (Auto) Eos % (Auto) Baso % (Auto) Neut # (Auto) Lymph # (Auto) [place] # (Auto) Eos # (Auto) Baso # (Auto) Nucleated RBC % (a uto) Nucleated RBCs # Sodium Potassium Chloride Carbon Dioxide Anion Gap BUN Creatinine GFR Calculation Glucose Calculated Osmolal ity Calcium Total Bilirubin AST ALT Alkaline Phosphata se Troponin T Baselin e Troponin T 120 Min [place] 14.60 ng/L ng/L (0-15) [place] Troponin T -0.40 ABS# L ABS# (0-10) C-Reactive Protein NT-Pro-B Natriuret Pep Total Protein Albumin Globulin Procalcitonin SARS-CoV-2 Ag (Rap id) Negative (Negative) EKG Data^: EKG 1: Attestation: I personally reviewed and interpreted this EKG as follows: EKG interpretation date: 05/02/21 EKG interpretation time: 21:19 Interpretation: Twelve-lead EKG shows a regular sinus rhythm at a rate of 73. TN interval 188, QRS duration 104, QTc 433. Normal axis Interpretation: Sinus rhythm, nonspecific ST segment abnormalities. Computer generated interpretation: Chest X-Ray 05/02/21 21:15 IMPRESSION: No acute disease. EKG 2: Computer generated interpretation: Chest X-Ray 05/02/21 21:15 IMPRESSION: No acute disease. Discharge Plan Discharge Patient Disposition: Home Clinical Impression: Bronchitis Condition: Stable Prescriptions: New prednisone 50 mg tablet 50 mg PO DAILY Qty: 5 RF: 0 albuterol sulfate 90 mcg/actuation HFA aerosol inhaler 2 inh INHALATION Q6H PRN (Reason: shortness of breath or wheezing) Qty: 8 RF: 0 doxycycline hyclate 100 mg tablet 100 mg PO BID 7 Days Qty: 14 RF: 0 No Action metformin 1,000 mg tablet 1,000 mg PO BID RF: 0 pregabalin [Lyrica] 150 mg capsule 150 mg PO BID RF: 0 meloxicam 15 mg tablet 15 mg PO DAILY RF: 0 omeprazole 20 mg capsule,delayed release(DR/EC) 20 mg PO DAILY RF: 0 omega-3 fatty acids [Fish Oil Concentrate] 1,000 mg capsule 1,000 mg PO DAILY RF: 0 nitroglycerin 0.4 mg tablet, sublingual 0.4 mg sublingual Q5M PRNRF: 0 metolazone 2.5 mg tablet 2.5 mg PO DAILY Qty: 30 RF: 2 potassium chloride [Klor-Con M20] 20 mEq tablet,ER particles/crystals 20 meq PO DAILY Qty: 90 RF: 2 metoprolol tartrate 50 mg tablet 50 mg PO BID Qty: 180 RF: 2 clopidogrel 75 mg tablet 75 mg PO DAILY Qty: 90 RF: 3 losartan 100 mg tablet 150 mg PO DAILY Qty: 90 RF: 2 Incruse Ellipta 62.5 mcg/actuation blister with device 1 inh inhalation DAILY Qty: 30 RF: 3 budesonide-formoterol [Symbicort] 80-4.5 mcg/actuation HFA aerosol inhaler 2 puff inhalation BID Qty: 10.2 RF: 3 tramadol 50 mg tablet 50 mg PO Q6H PRN (Reason: pain) 7 Days Qty: 60 RF: 0 furosemide 40 mg tablet 40 mg PO BID Qty: 180 RF: 3 atorvastatin 40 mg tablet 40 mg PO DAILY Qty: 90 RF: 3 isosorbide mononitrate 30 mg tablet extended release 24 hr 30 mg PO DAILY Qty: 90 RF: 1 Discharge Orders: Discharge ED (Routine); Ordered 05/03/21 Ordered By: Jamel Wright Referrals: Kindra Khan DO [Primary Care Provider] - 1-3 days Discharge Diet: Advance as tolerated Discharge Activity: Resume usual activity Patient Instructions: Acute Bronchitis (ED) Coding Level of Care Code ED Toe Stapler for Chg Fwd Documented by User: Jamel Wright MD 05/03/21 00:22 HPI - General Adult General: Chief complaint: General Medical Stated complaint: coughing, sob Time Seen by Provider: 05/02/21 21:38 [facility] ED PFSH: Medical History CAD (coronary artery disease) COPD (chronic obstructive pulmonary disease) Surgical History H/O umbilical hernia repair Stented coronary artery Social History Quit status (tobacco): considering quitting Second hand smoke exposure: No Smoking risk assessment/counseling performed?: Yes Alcohol intake: former Lives independently: Yes Household members: spouse Housing: House Marital status: service: No Current occupational status: employed 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 Covid here is negative x-ray shows no signs of pneumonia and his troponins here are negative with no signs of coronary cause. Will prescribe patient albuterol with steroid and doxycycline. He is to follow-up with PCP and return if worsening. He understands agrees to plan. Lab Data: Labs: Lab Results 05/02/21 05/02/21 05/02/21 22:35 22:35 22:35 WBC 6.0 10^3/uL 10^3/ uL (4.0-10.0) RBC 4.86 10^6/uL 10^6 /uL (4.1-5.3) Hgb 14.6 g/dL g/dL (11.7-16.6) Hct 45.4 % % (42.0-52.0) MCV 93.4 fl fl (80-94) MCH 30.0 pg pg (28.0-34.0) MCHC 32.2 g/dL g/dL (30.0-36.0) RDW 13.8 % % (12.1-15.1) Plt Count 165 10^3/cmm 10^3 /cmm (130-400) MPV 9.7 fL fL (7.4-10.4) Neut % (Auto) 66.7 % % Lymph % (Auto) 21.7 % % [place] % (Auto) 8.8 % % Eos % (Auto) 1.8 % % Baso % (Auto) 0.7 % % Neut # (Auto) 4.03 10^3/uL 10^3 /uL (1.8-7.7) Lymph # (Auto) 1.3 10^3/uL 10^3/ uL (0.8-4.8) [place] # (Auto) 0.5 10^3/uL 10^3/ uL (0.2-0.9) Eos # (Auto) 0.1 10^3/uL 10^3/ uL (0.0-0.8) Baso # (Auto) 0.0 10^3/uL 10^3/ uL (0.0-0.1) Nucleated RBC % (a uto) 0 % % Nucleated RBCs # 0.0 /100WBC /100W BC Sodium 139 mmol/L mmol/L (136-145) Potassium 3.5 mmol/L mmol/L (3.5-5.1) Chloride 99 mmol/L mmol/L (98-107) Carbon Dioxide 29 mmol/L mmol/L (22-29) Anion Gap 14.5 (5-19) BUN 13 mg/dL mg/dL (6-20) Creatinine 0.9 mg/dL mg/dL (0.7-1.2) GFR Calculation 86.4 mL/min L mL/ min (90-130) Glucose 99 mg/dL mg/dL (65-115) Calculated Osmolal ity 288 mOsm/kg mOsm/ kg (285-295) Calcium 7.7 mg/dL L mg/dL (8.5-10.5) Total Bilirubin 0.4 mg/dL mg/dL (0.15-1.2) AST 25 U/L U/L (0-40) ALT 28 U/L U/L (0-41) Alkaline Phosphata se 74 IU/L IU/L (40-130) Troponin T Baselin e 15 ng/L ng/L (0-15) Troponin T 120 Min [place] Troponin T C-Reactive Protein 7.0 mg/L H mg/L (0.0-4.9) NT-Pro-B Natriuret Pep 224 pg/mL H pg/mL (0-125) Total Protein 6.9 g/dL g/dL (6.6-8.7) Albumin 3.8 g/dL g/dL (3.5-5.2) Globulin 3.1 g/dL g/dL (1.3-4.6) Procalcitonin 0.09 ng/mL ng/mL (0-0.5) SARS-CoV-2 Ag (Rap id) 05/02/21 05/02/21 23:00 23:40 WBC RBC Hgb Hct MCV MCH MCHC RDW Plt Count MPV Neut % (Auto) Lymph % (Auto) [place] % (Auto) Eos % (Auto) Baso % (Auto) Neut # (Auto) Lymph # (Auto) [place] # (Auto) Eos # (Auto) Baso # (Auto) Nucleated RBC % (a uto) Nucleated RBCs # Sodium Potassium Chloride Carbon Dioxide Anion Gap BUN Creatinine GFR Calculation Glucose Calculated Osmolal ity Calcium Total Bilirubin AST ALT Alkaline Phosphata se Troponin T Baselin e Troponin T 120 Min [place] 14.60 ng/L ng/L (0-15) Delta Troponin T -0.40 ABS# L ABS# (0-10) C-Reactive Protein NT-Pro-B Natriuret Pep Total Protein Albumin Globulin Procalcitonin SARS-CoV-2 Ag (Rap id) Negative (Negative) Imaging Data^: CXR: Attestation: I personally reviewed and interpreted this imaging study as follows: Radiologist's impression: [address] [address] XRay Report Signed Patient: Stephen Garrett Unit #: [id number] : 1960 Age/Sex: 60 / M ADM Date: 05/02/21 Loc: ER Room/Bed: Attending Dr: Ordering Provider/Ordering MD: Conor Leigh NP Date of Service: 05/02/21 Procedure(s): XR chest 1V portable [id number] Accession Number(s): [id number] Report Number: [id number] PROCEDURE INFORMATION: Exam: XR Chest Exam date and time: 05/02/2021 9:15 PM Age: 60 years old Clinical indication: Cough and shortness of breath; Additional info: Dyspnea TECHNIQUE: Imaging protocol: XR of the chest. Views: 1 view. COMPARISON: CR XR chest 1V portable [id number] 07/25/2020 11:24 PM FINDINGS: Lungs: Unremarkable. No consolidation. Pleural spaces: Unremarkable. No pleural effusion. No pneumothorax. Heart/Mediastinum: Unremarkable. No cardiomegaly. Bones/joints: Unremarkable. XR/XR chest 1V portable [id number] IMPRESSION: No acute disease. Dictated By: Harshad Ngo Signed By: Harshad Ngo Signed Date/Time: 05/02/212200 DD/ 00 EKG Data^: EKG 1: Computer generated interpretation: Chest X-Ray 05/02/21 21:15 IMPRESSION: No acute disease. EKG 2: Attestation: I personally reviewed and interpreted this EKG as follows: EKG interpretation date: 05/02/21 EKG interpretation time: 23:59 Interpretation: nsr hr [address] or twave abnormalities qrs 103 qtc 431 Computer generated interpretation: Chest X-Ray 05/02/21 21:15 IMPRESSION: No acute disease. Discharge Plan Discharge Patient Disposition: Home Clinical Impression: Bronchitis Condition: Stable Prescriptions: New prednisone 50 mg tablet 50 mg PO DAILY Qty: 5 RF: 0 albuterol sulfate 90 mcg/actuation HFA aerosol inhaler 2 inh INHALATION Q6H PRN (Reason: shortness of breath or wheezing) Qty: 8 RF: 0 doxycycline hyclate 100 mg tablet 100 mg PO BID 7 Days Qty: 14 RF: 0 No Action metformin 1,000 mg tablet 1,000 mg PO BID RF: 0 pregabalin [Lyrica] 150 mg capsule 150 mg PO BID RF: 0 meloxicam 15 mg tablet 15 mg PO DAILY RF: 0 omeprazole 20 mg capsule,delayed release(DR/EC) 20 mg PO DAILY RF: 0 omega-3 fatty acids [Fish Oil Concentrate] 1,000 mg capsule 1,000 mg PO DAILY RF: 0 nitroglycerin 0.4 mg tablet, sublingual 0.4 mg sublingual Q5M PRNRF: 0 metolazone 2.5 mg tablet 2.5 mg PO DAILY Qty: 30 RF: 2 potassium chloride [Klor-Con M20] 20 mEq tablet,ER particles/crystals 20 meq PO DAILY Qty: 90 RF: 2 metoprolol tartrate 50 mg tablet 50 mg PO BID Qty: 180 RF: 2 clopidogrel 75 mg tablet 75 mg PO DAILY Qty: 90 RF: 3 losartan 100 mg tablet 150 mg PO DAILY Qty: 90 RF: 2 Incruse Ellipta 62.5 mcg/actuation blister with device 1 inh inhalation DAILY Qty: 30 RF: 3 budesonide-formoterol [Symbicort] 80-4.5 mcg/actuation HFA aerosol inhaler 2 puff inhalation BID Qty: 10.2 RF: 3 tramadol 50 mg tablet 50 mg PO Q6H PRN (Reason: pain) 7 Days Qty: 60 RF: 0 furosemide 40 mg tablet 40 mg PO BID Qty: 180 RF: 3 atorvastatin 40 mg tablet 40 mg PO DAILY Qty: 90 RF: 3 isosorbide mononitrate 30 mg tablet extended release 24 hr 30 mg PO DAILY Qty: 90 RF: 1 Discharge Orders: Discharge ED (Routine); Ordered 05/03/21 Ordered By: Jamel Wright Referrals: Kindra Khan DO [Primary Care Provider] - 1-3 days Discharge Diet: Advance as tolerated Discharge Activity: Resume usual activity Patient Instructions: Acute Bronchitis (ED) Coding Level of Care Code ED Toe Stapler for Bro [place]
[2021-05-02 22:56] LABS: Basophils % 0.7 %; Eosinophils # 0.1 10^3/uL (0.0-0.8); Eosinophils % 1.8 %; Hematocrit 45.4 % (42.0-52.0); Hemoglobin 14.6 g/dL (11.7-16.6); Lymphocytes # 1.3 10^3/uL (0.8-4.8); Lymphocytes % 21.7 %; Mean Corpuscular HGB Conc 32.2 g/dL (30.0-36.0); Mean Corpuscular Volume 93.4 fl (80-94); Mean Platelet Volume 9.7 fL (7.4-10.4); Monocytes # 0.5 10^3/uL (0.2-0.9); Monocytes % 8.8 %; Neutrophils # 4.03 10^3/uL (1.8-7.7); Neutrophils % 66.7 %; Nucleated Red Blood Cells % 0 %; Platelet Count 165 10^3/cmm (130-400); Red Blood Count 4.86 10^6/uL (4.1-5.3); Red Cell Distribution Width 13.8 % (12.1-15.1)
[2021-05-02 23:15] LABS: Troponin(5th) Baseline 15 ng/L (0-15)
--- NOTE | 2021-05-02 23:15 | ECG_ITS ---
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 Measurements Intervals [place] Rate: 70 P: 53 [place]: 196 QRS: 35 QRSD: 103 T: -5 QT: 411 QTc: 444 Interpretive Statements SINUS RHYTHM LOW QRS VOLTAGE IN PRECORDIAL LEADS [QRS DEFLECTION < 1.0 mV IN CHEST LEADS] SEPTAL MYOCARDIAL INFARCTION , PROBABLY OLD [40+ ms Q WAVE IN V1/V2] Compared to ECG 05/02/2021 21:12:32 No significant changes Electronically Signed On 05-03-2021 0:04:06 CDT by Lynette Kenyon M.D. [id number]
[2021-05-02 23:22] LABS: NT Pro B Type Natriuretic Pept 224 pg/mL (0-125); Procalcitonin 0.09 ng/mL (0-0.5)
[2021-05-02 23:25] LABS: SARS Covid-2 Antigen Negative (Negative)
[2021-05-02 23:33] LABS: Alanine Aminotransferase 28 U/L (0-41); Albumin Level 3.8 g/dL (3.5-5.2); Alkaline Phosphatase 74 IU/L (40-130); Aspartate Amino Transferase 25 U/L (0-40); Blood Urea Nitrogen 13 mg/dL (6-20); Calcium 7.7 mg/dL (8.5-10.5); Carbon Dioxide 29 mmol/L (22-29); Chloride 99 mmol/L (98-107); Globulin 3.1 g/dL (1.3-4.6); Glomerular Filtration Rate 86.4 mL/min (90-130); Glucose 99 mg/dL (65-115); Osmolality Calculated 288 mOsm/kg (285-295); Sodium 139 mmol/L (136-145); Total Bilirubin 0.4 mg/dL (0.15-1.2); Total Protein 6.9 g/dL (6.6-8.7)
[2021-05-02 23:36] LABS: Anion Gap 14.5 (5-19); Potassium 3.5 mmol/L (3.5-5.1)
[2021-05-03] VITALS: BP 134/68; PULSE 73; RESP 20; O2SAT 96
[2021-05-03 00:36] VITALS: PULSE 76; RESP 17; O2SAT 95
[2021-05-03 00:39] VITALS: BP 148/78; PULSE 73; RESP 20; O2SAT 97
== END 2021-05-03 00:35 | disposition home or self-care (01) ==
PROVIDERS: Emergency Medicine; Nurse Practitioner Family; Emergency Provider Emergency Medicine; PCP Family Medicine
DX: J40 Bronchitis, not specified as acute or chronic (principal); Z79.84 Long term (current) use of oral hypoglycemic drugs; Z79.02 Long term (current) use of antithrombotics/antiplatelets; I25.10 Atherosclerotic heart disease of native coronary artery without angina pectoris; J44.9 Chronic obstructive pulmonary disease, unspecified; I10 Essential (primary) hypertension; E78.5 Hyperlipidemia, unspecified; E11.9 Type 2 diabetes mellitus without complications; Z20.822 Contact with and (suspected) exposure to COVID-19
CPT/HCPCS: 36415; 71045; 80053; 83880; 84145; 84484; 85025; 86140; 87426; 93005; 94640; 99283; J3535

== ENCOUNTER 2022-12-04 09:35 | Emergency (ER) | payer OTHER, SELFPAY ==
[2022-12-04 10:11] VITALS: BP 116/71; PULSE 70; TEMP 36.6; O2SAT 93; BMI 44.1
--- NOTE | 2022-12-04 10:34 | CT_ITS ---
WS: [id number] CT HEAD TECHNIQUE: Noncontrast CT of the head obtained from the skullbase to the vertex. CLINICAL INFORMATION: vertigo COMPARISON: None. DLP: 1031.[address] scans at [facility] use at least one of these dose optimization techniques: automated e xposure control; mA and/or kV adjustment per patient size (includes targeted exams where dose is matc hed to clinical indication); or iterative reconstruction. FINDINGS: No evidence of intracranial hemorrhage or mass effect. Ventricular system and basal cisterns are mon nt. Mild small vessel changes with moderate parenchymal volume loss. Vascular calcification. No extra -axial fluid collections. Mild mucosal thickening in the ethmoid air cells. Mastoid air cells well aerated. CT/CT head wo con* [id number] IMPRESSION: 1. No evidence of intracranial hemorrhage or mass effect. 2. Mild small vessel changes. Moderate parenchymal volume loss. 3. Vascular calcification. 4. No acute intracranial findings.
--- NOTE | 2022-12-04 10:41 | XR_ITS ---
WS: [id number] Exam: XR chest 1V portable [id number] Date/Time of Exam: 12/04/2022 10:45 AM Reason For Exam: shortness of breath Comparison 05/02/2021. Findings: The lungs are clear and fully expanded. Costophrenic angles are sharp. No infiltrates. Bronchovascula r relief appears normal. Cardiac silhouette is unremarkable. Bony elements are intact. XR/XR chest 1V portable [id number] IMPRESSION: Unremarkable chest radiograph.
[2022-12-04 11:03] LABS: Basophils % 0.7 %; Eosinophils # 0.2 10^3/uL (0.0-0.8); Eosinophils % 3.5 %; Hematocrit 46.3 % (42.0-52.0); Hemoglobin 14.6 g/dL (11.7-16.6); Lymphocytes # 1.1 10^3/uL (0.8-4.8); Lymphocytes % 18.5 %; Mean Corpuscular HGB Conc 31.5 g/dL (30.0-36.0); Mean Corpuscular Hemoglobin 29.5 pg (28.0-34.0); Mean Corpuscular Volume 93.5 fl (80-94); Mean Platelet Volume 10.2 fL (7.4-10.4); Monocytes # 0.5 10^3/uL (0.2-0.9); Monocytes % 8.3 %; Neutrophils # 3.94 10^3/uL (1.8-7.7); Neutrophils % 68.3 %; Nucleated Red Blood Cells % 0 %; Platelet Count 176 10^3/cmm (130-400); Red Blood Count 4.95 10^6/uL (4.1-5.3); Red Cell Distribution Width 14.9 % (12.1-15.1); White Blood Count 5.8 10^3/uL (4.0-10.0)
--- NOTE | 2022-12-04 11:05 | ED_ITS ---
HPI - Dizziness General: Chief Complaint: Dizziness Stated Complaint: SOB, fever, dizziness Time Seen by Provider: 12/04/22 10:37 History of Present Illness: HPI Narrative: Patient presents to the ER with complaints of dizziness x3 days which is getting worse. Patient states he has had a headache and some blurry vision during the last 3 days. Patient also complains of shortness of breath and swelling. Patient is on a diuretic. MD elicited complaint: dizziness and vertigo Onset (ago): day(s) (3 days ago) Timing: gradual onset and constant Severity: mild Description: sense of movement History of similar symptoms: Yes Exacerbating factors: movement/ambulation Relieving factors: nothing Associated symptoms: Reports headache(s) and short of breath; Denies chest pain, chills, nausea, palpitations or vomiting Associated neuro symptoms: Reports confusion (Per ); Deny numbness in extremities Review of Systems Const: Denies: fever(s) or chills Eyes: Denies: change in vision or photophobia ENMT: Denies: throat pain or enlarged tonsils Card: Reports: edema; Denies: chest pain, palpitations or irregular heart rhythm Resp: Reports: dyspnea; Denies: productive cough or non-productive cough GI: Denies: abdominal pain, nausea or vomiting : Denies: flank pain or difficulty urinating Musc: Denies: neck pain or back pain Skin/Breast: Denies: rash or pruritus Neuro: Reports: headache(s) and confusion (Per ); Denies: numbness in extremities PFSH ED PFSH: Medical History CAD (coronary artery disease) COPD (chronic obstructive pulmonary disease) Surgical History H/O umbilical hernia repair Stented coronary artery Social History Smoking and tobacco status: current every day smoker cigarettes Packs smoked per day: 0.5 Years cigarettes smoked: 40 [ Other cigarette details: 3-4ppd 7 years ago] Quit status (tobacco): considering quitting Second hand smoke exposure: No Smoking risk assessment/counseling performed?: Yes Alcohol intake: former Substance/Drug Use: never Lives independently: Yes Household members: spouse Housing: House Marital status: service: No Current occupational status: employed 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 Pets and animals: No Do you think of yourself as: Straight/Heterosexual Current gender identity: Male Physical Exam Const: COMMON NORMALS: no acute distress, average body habitus, patient oriented x3, no limitations, healthy appearing, alert and well nourished HENMT: COMMON NORMALS: normocephalic, atraumatic, hearing grossly normal bilaterally, external ears normal and moist oral mucous membranes HEAD & SCALP: normocephalic and atraumatic EXTERNAL EAR: Yes external ears normal Eye: COMMON NORMALS: Equal, round and reactive pupils present, EOMs intact bilaterally, conjunctivae normal and no scleral icterus CONJUNCTIVA: Yes conjunctivae normal PUPIL: Yes Equal, round and reactive pupils present Neck/C-Spine: COMMON NORMALS: full ROM, no lymphadenopathy, supple, no meni ngeal signs, no JVD and Thyroid normal THYROID: Thyroid normal Lymph: LYMPHATIC: no lymphadenopathy noted Chest: COMMONS NORMALS: normal inspection of the chest and normal palpation of entire chest wall Resp: COMMON NORMALS: normal respiratory effort, No retractions, No use of accessory muscles and clear to auscultation bilaterally AUSCULTATION: clear to auscultation bilaterally Cardio: COMMON NORMALS: no JVD, regular rate, regular rhythm, S1 normal heart sound present, S2 normal heart sound present, No gallops present (Cardio), No clicks present (Cardio) and No murmurs present (Cardio) RATE: regular rate RHYTHM: regular rhythm HEART SOUNDS: S1 normal heart sound present and S2 normal heart sound present GI: COMMON NORMALS: Normal to inspection, nondistended, normoactive bowel sounds present, Soft to palpation, non-tender, No hepatosplenomegaly present and no masses PALPATION: Yes Soft to palpation and Yes No hepatosplenomegaly present : COMMON NORMALS: Yes no CVA tenderness BLADDER/KIDNEY EXAM: Yes no CVA tenderness Back/Pelvis: COMMON NORMALS: no CVA tenderness Neuro: COMMON NORMALS: patient oriented x3 SENSORIUM/ORIENTATION: Yes alert MENINGEAL SIGNS: Yes no meningeal signs Course Vital Signs: Vital signs: Vital Signs Temperature 97.9 F 12/04/22 10:11 Pulse Rate 70 12/04/22 10:11 Respiratory Rate 17 12/04/22 14:31 Blood Pressure 116/71 12/04/22 10:11 Pulse Oximetry 98 12/04/22 14:31 Oxygen Delivery Me thod Room Air 12/04/22 14:31 MDM - Dizziness Medical Decision Making Patient presents to the ER with complaints of dizziness times last 3 days. Patient is also complained of headache and blurry vision. Patient also states he has not taken his Lasix in multiple days and is mildly short of breath and fluid overloaded. Lab work was obtained on this patient CBC CMP is essentially benign benign as is head CT. BNP is slightly elevated at 489 and magnesium is slightly low at 1.5. Patient was given 40 mg Lasix IV in the ER. Patient was instructed he needs to take his Lasix on a daily basis. Patient be discharged home to follow-up with his PCP in the next week Differential Diagnosis Likely benign paroxysmal positional vertigo; Unlikely adverse reaction to drug, orthostatic hypotension, vertebral basilar insufficiency, cerebrovascular accident, acute vestibular neuronitis or transient cerebral ischemia Medical Records I reviewed the patient's medical records. Lab Data I reviewed the patient's lab results. 12/04/22 10:55 12/04/22 11:[address] 12/04/22 10:34 IMPRESSION: 1. No evidence of intracranial hemorrhage or mass effect. 2. Mild small vessel changes. Moderate parenchymal volume loss. 3. Vascular calcification. 4. No acute intracranial findings. Chest X-Ray 12/04/22 10:41 IMPRESSION: Unremarkable chest radiograph. Laboratory Results WBC 5.8 10^3/uL (4.0-10.0) 12/04/22 10:55 RBC 4.95 10^6/uL (4.1-5.3) 12/04/22 10:55 Hgb 14.6 g/dL (11.7-16.6) 12/04/22 10:55 Hct 46.3 % (42.0-52.0) 12/04/22 10:55 MCV 93.5 fl (80-94) 12/04/22 10:55 MCH 29.5 pg (28.0-34.0) 12/04/22 10:55 MCHC 31.5 g/dL (30.0-36.0) 12/04/22 10:55 RDW 14.9 % (12.1-15.1) 12/04/22 10:55 Plt Count 176 10^3/cmm (130-400) 12/04/22 10:55 MPV 10.2 fL (7.4-10.4) 12/04/22 10:55 Neut % (Auto) 68.3 % 12/04/22 10:55 Lymph % (Auto) 18.5 % 12/04/22 10:55 Beck[place] % (Auto) 8.3 % 12/04/22 10:55 Eos % (Auto) 3.5 % 12/04/22 10:55 Baso % (Auto) 0.7 % 12/04/22 10:55 Neut # (Auto) 3.94 10^3/uL (1.8-7.7) 12/04/22 10:55 Lymph # (Auto) 1.1 10^3/uL (0.8-4.8) 12/04/22 10:55 Beckham # (Auto) 0.5 10^3/uL (0.2-0.9) 12/04/22 10:55 Eos # (Auto) 0.2 10^3/uL (0.0-0.8) 12/04/22 10:55 Baso # (Auto) 0.0 10^3/uL (0.0-0.1) 12/04/22 10:55 Nucleated RBC % (auto) 0 % 12/04/22 10:55 Nucleated RBCs # 0.0 /100WBC 12/04/22 10:55 Sodium 139 mmol/L (136-145) 12/04/22 11:30 Potassium 4.2 mmol/L (3.5-5.1) 12/04/22 11:30 Chloride 98 mmol/L (98-107) 12/04/22 11:30 Carbon Dioxide 31 mmol/L (22-29) H 12/04/22 11:30 Anion Gap 14.2 (5-19) 12/04/22 11:30 BUN 10 mg/dL (8-23) 12/04/22 11:30 Creatinine 0.9 mg/dL (0.7-1.2) 12/04/22 11:30 GFR Calculation 85.8 mL/min (90-130) L 12/04/22 11:30 Glucose 139 mg/dL (65-115) H 12/04/22 11:30 Calculated Osmolality 289 mOsm/kg (285-295) 12/04/22 11:30 Calcium 8.4 mg/dL (8.5-10.5) L 12/04/22 11:30 Magnesium 1.5 mg/dL (1.7-2.3) L 12/04/22 11:30 Total Bilirubin 0.4 mg/dL (0.15-1.2) 12/04/22 11:30 AST 16 U/L (0-40) 12/04/22 11:30 ALT 27 U/L (0-41) 12/04/22 11:30 Alkaline Phosphatase 92 U/L (40-130) 12/04/22 11:30 NT-Pro-B Natriuret Pep 479 pg/mL (0-125) H 12/04/22 11:30 Total Protein 7.6 g/dL (6.6-8.7) 12/04/22 11:30 Albumin 3.9 g/dL (3.5-5.2) 12/04/22 11:30 Globulin 3.7 g/dL (1.3-4.6) 12/04/22 11:30 Urine Color Yellow (Yellow) 12/04/22 14:30 Urine Appearance Clear (CLEAR) 12/04/22 14:30 Urine pH 5 (5-7) 12/04/22 14:30 Ur Specific [place] 1.015 (1.005-1.030) 12/04/22 14:30 Urine Protein Trace (Negative) 12/04/22 14:30 Urine Glucose (UA) Norm (Normal) 12/04/22 14:30 Urine Ketones Negative (Negative) 12/04/22 14:30 Urine Blood Neg (Negative) 12/04/22 14:30 Urine Nitrate Negative (Negative) 12/04/22 14:30 Urine Bilirubin Neg (Negative) 12/04/22 14:30 Urine Urobilinogen 4 mg/dL (Negative) H 12/04/22 14:30 Ur Leukocyte Esterase Negative (Negative) 12/04/22 14:30 Urine RBC Rare /hpf (0-2) 12/04/22 14:30 Urine WBC None /hpf (0-5) 12/04/22 14:30 Ur Squamous Epith Cells None /hpf (0-5) 12/04/22 14:30 Amorphous Sediment Not Reportable 12/04/22 14:30 Urine Bacteria None /hpf (NONE) 12/04/22 14:30 EKG Data EKG 1: I personally reviewed and interpreted this EKG as follows: EKG interpretation date: 12/04/22 EKG interpretation time: 11:44 Prior EKG tracings: not available for review Interpretation: EKG showed normal sinus rhythm with ventricular rate of 69 bpm NE interval 164, QRS duration 103, QTc of 424, left axis deviation, possible anterior PA of indeterminate age Q waves in V3 and V4 Discharge Plan Discharge Patient Disposition: Home Clinical Impression: Vertigo, Hypomagnesemia Edema Qualifiers: Edema type: unspecified Qualified Code(s): R60.9 - Edema, unspecified Condition: Stable Prescriptions: No Action metformin 1,000 mg tablet 1,000 mg PO BID pregabalin [Lyrica] 150 mg capsule 150 mg PO BID omeprazole 20 mg capsule,delayed release(DR/EC) 20 mg PO DAILY omega-3 fatty acids [Fish Oil Concentrate] 1,000 mg capsule 1,000 mg PO DAILY nitroglycerin 0.4 mg tablet, sublingual 0.4 mg sublingual Q5M PRN (Reason: Chest Pain) Rx Instructions: do not exceed 3 doses per episode Spiriva Respimat 2.5 mcg/actuation mist 2 puff inhalation DAILY Qty: 4 0RF metoprolol tartrate 50 mg tablet 50 mg PO BID Qty: 180 3RF losartan 50 mg tablet 50 mg PO DAILY Qty: 90 3RF Rx Instructions: Patient's ins wants only to use 1 tab daily per each RX. Take with 100mg tab to equal 150mg daily. isosorbide mononitrate 30 mg tablet extended release 24 hr 30 mg PO DAILY Qty: 30 0RF clopidogrel 75 mg tablet 75 mg PO DAILY Qty: 30 0RF potassium chloride [Klor-Con M20] 20 mEq tablet,ER particles/crystals 20 meq PO DAILY Qty: 30 0RF Rx Instructions: Must have appointment for further refills furosemide 40 mg tablet 40 mg PO BID Qty: 60 0RF Rx Instructions: MUST have follow-up with new provider for further refills albuterol sulfate 90 mcg/actuation HFA aerosol inhaler 2 inh INHALATION Q6H PRN (Reason: shortness of breath or wheezing) Qty: 8 0RF pravastatin 40 mg tablet 40 mg PO DAILY hydrocodone-acetaminophen 5-325 mg tablet 1 - 2 tab PO BEDTIME PRN (Reason: Pain) metolazone 2.5 mg tablet 2.5 mg PO DAILY PRN (Reason: Edema) Rx Instructions: Take 1 tablet 30 minutes before morning lasix dose, for 3 days. Then continue Lasix alone. losartan 100 mg tablet 100 mg PO QPM Rx Instructions: Patient's ins wants only to use 1 tab daily per each RX. Take with 50mg tab to equal 150mg daily. 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
--- NOTE | 2022-12-04 11:44 | ECG_ITS ---
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 Measurements Intervals [place] Rate: 69 P: 20 WA: 164 QRS: -37 QRSD: 103 T: 15 QT: 405 QTc: 434 Interpretive Statements SINUS RHYTHM LEFT AXIS DEVIATION [QRS AXIS < -30] LOW QRS VOLTAGE IN PRECORDIAL LEADS [QRS DEFLECTION < 1.0 mV IN CHEST LEADS] POSSIBLE ANTERIOR MYOCARDIAL INFARCTION , OF INDETERMINATE AGE [30 ms Q WAVE IN V3/V4, OR R < 0.2 mV IN V4] Compared to ECG 05/02/2021 23:59:26 Left-axis deviation now present Myocardial infarct finding still present Electronically Signed On 12-04-2022 16:27:18 CDT by Harsha Egan M.D. [id number]
[2022-12-04 12:04] LABS: Chloride 98 mmol/L (98-107); Potassium 4.2 mmol/L (3.5-5.1); Sodium 139 mmol/L (136-145)
[2022-12-04 13:13] LABS: Alanine Aminotransferase 27 U/L (0-41); Alkaline Phosphatase 92 U/L (40-130); Anion Gap 14.2 (5-19); Aspartate Amino Transferase 16 U/L (0-40); Blood Urea Nitrogen 10 mg/dL (8-23); Calcium 8.4 mg/dL (8.5-10.5); Carbon Dioxide 31 mmol/L (22-29); Glomerular Filtration Rate 85.8 mL/min (90-130); Glucose 139 mg/dL (65-115); Magnesium 1.5 mg/dL (1.7-2.3); NT Pro B Type Natriuretic Pept 479 pg/mL (0-125); Osmolality Calculated 289 mOsm/kg (285-295); Total Bilirubin 0.4 mg/dL (0.15-1.2); Total Protein 7.6 g/dL (6.6-8.7)
[2022-12-04 14:07] LABS: Albumin Level 3.9 g/dL (3.5-5.2); Globulin 3.7 g/dL (1.3-4.6)
[2022-12-04 14:31] VITALS: RESP 17; O2SAT 98
[2022-12-04] MEDS: FUROsemide 10 mg/mL SDV 4mL 40 MG IVP (15:20)
[2022-12-04 15:27] LABS: Bilirubin Urine Neg (Negative); Blood Urine Neg (Negative); Glucose Urine UA Norm (Normal); Ketones Urine Negative (Negative); Nitrate Urine Negative (Negative); Protein Urine Trace (Negative); Specific Gravity, Urine 1.015 (1.005-1.030); Urine Appearance Clear (CLEAR); Urine Color Yellow (Yellow); Urobilinogen Urine 4 mg/dL (Negative); pH Urine 5 (5-7)
[2022-12-04 15:28] LABS: Add Urine Culture? No; Add Urine Microscopic? YES; Leukocyte Esterase Urine Negative (Negative); RBC Urine RARE /hpf (0-2)
== END 2022-12-04 15:55 | disposition home or self-care (01) ==
PROVIDERS: Emergency Provider Emergency Medicine; PCP Family Medicine
DX: R42 Dizziness and giddiness (principal); E83.42 Hypomagnesemia; R60.9 Edema, unspecified; Z79.84 Long term (current) use of oral hypoglycemic drugs; Z79.02 Long term (current) use of antithrombotics/antiplatelets; I25.10 Atherosclerotic heart disease of native coronary artery without angina pectoris; J44.9 Chronic obstructive pulmonary disease, unspecified; F17.210 Nicotine dependence, cigarettes, uncomplicated
CPT/HCPCS: 36415; 70450; 71045; 80053; 81001; 83735; 83880; 85025; 93005; 96374; 99285; J1940

== ENCOUNTER 2024-04-05 08:34 | Outpatient (CLI) | payer OTHER, SELFPAY ==
[2024-04-05 09:18] LABS: Basophils % 0.8 %; Eosinophils # 0.1 10^3/uL (0.0-0.8); Eosinophils % 2.8 %; Hematocrit 48.7 % (37-53); Lymphocytes # 1.1 10^3/uL (0.8-4.8); Mean Corpuscular HGB Conc 31.4 g/dL (30-55); Mean Corpuscular Hemoglobin 28.7 pg (27-33); Mean Corpuscular Volume 91.4 fl (82-101); Mean Platelet Volume 10.1 fL (7.4-10.4); Monocytes # 0.5 10^3/uL (0.2-0.9); Monocytes % 11.6 %; Neutrophils # 2.24 10^3/uL (1.8-7.7); Neutrophils % 56.5 %; Nucleated Red Blood Cells % 0 %; Platelet Count 119 10^3/cmm (157-399); Red Blood Count 5.33 10^6/uL (3.85-5.65); Red Cell Distribution Width 15.3 % (12.1-15.1); White Blood Count 3.96 10^3/uL (3.29-11.43)
[2024-04-05 09:32] LABS: Estmated Average Glucose 148; Hemoglobin A1C 6.8 % (4.0-6.0)
[2024-04-05 09:40] LABS: Slide Review Slide Review Perform
[2024-04-05 09:53] LABS: Alanine Aminotransferase 19 U/L (0-41); Albumin Level 3.6 g/dL (3.5-5.2); Alkaline Phosphatase 76 U/L (40-130); Anion Gap 14.5 (5-19); Aspartate Amino Transferase 17 U/L (0-40); Blood Urea Nitrogen 12 mg/dL (8-23); Carbon Dioxide 31 mmol/L (22-29); Chloride 98 mmol/L (98-107); Chol HDL Ratio 4.52 mg/dL (1.0-5.00); Cholesterol 95 mg/dL (0-200); Globulin 3.5 g/dL (1.3-4.6); Glomerular Filtration Rate 75.7 mL/min (90-130); Glucose 99 mg/dL (65-115); HDL Cholesterol 21 mg/dL (60-100); LDL Cholesterol Calculated 16 mg/dL (50-129); LDL HDL Ratio 0.76 RATIO (0.00-3.22); Osmolality Calculated 288 mOsm/kg (285-295); Potassium 4.5 mmol/L (3.5-5.1); Sodium 139 mmol/L (136-145); Thyroid Stimulating Hormone 4.86 uIU/mL (0.27-4.20); Total Bilirubin 0.4 mg/dL (0.15-1.2); Total Protein 7.1 g/dL (6.6-8.7); Triglycerides 291 mg/dL (0-150)
== END 2024-04-05 08:35 | disposition home or self-care (01) ==
LOC: LAB 08:37
PROVIDERS: PCP Family Medicine; Visit Provider Family Medicine
DX: E11.9 Type 2 diabetes mellitus without complications (principal); I10 Essential (primary) hypertension
CPT/HCPCS: 36415; 80053; 80061; 83036; 84443; 85025

== ENCOUNTER 2025-04-07 18:51 | Observation (INO) | payer OTHER, SELFPAY ==
--- OUTSIDE RECORDS SUMMARY | 2025-04-07 14:40 | XMS_ITS | Encounter Summary ---
Author Organization [facility] Address [address] [place] [address] Care Team Providers Care Lead Instructor/Flight Attendant Name Role Phone BillKindra zelaya Darek ADKINS Primary Care Provider [phone] Reason for Visit * Reason Comments Follow Up 3 month Encounter Details Date Type Department Care Team (Late st Contact Info) Description 04/07/2025 2:40 PM CDT Office Visit [facility] [address] [place] [phone] JimenezNovember, [facility] [address] [place] [phone] Essential hypertension (Primary Dx); Chronic bilateral low back pain with bilateral sciatica; Type 2 diabetes mellitus without complication, without long-term current use of insulin; Chronic systolic congestive heart failure (CMS/HCC); Fibromyalgia; Panlobular emphysema ([facility]/HCC) Social History Tobacco Use Types Packs/Day Years Used Date Smoking Tobacco: Every Day Cigarettes 0.5 30 Passive Smoke Exposure: Current Smokeless Tobacco: Never Tobacco Cessation:Ready to Q uit: No; Counseling Given: Yes Alcohol Use Standard Drinks/Week Comments Never 0 (1 standard drink = 0.6 oz pur e alcohol) social Sex and Gender Information Value Date Recorded Sex Assigned at Not on file 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 Gender Identity Not on file Sexual Orientation Not on file documented as of this encounter Last Filed Vital Signs Vital Sign Reading Time Taken Comments Blood Pressure 144/64 04/07/2025 2:36 PM CDT Pulse 97 04/07/2025 2:34 PM CDT Temperature 36.6 C (97.9 F) 04/07/2025 2:34 PM CDT Respiratory Rate 18 04/07/2025 2:34 PM CDT Oxygen Saturation 93% 04/07/2025 2:34 PM CDT Inhaled Oxygen Concentration - - Weight 105.2 kg (232 lb) 04/07/2025 2:34 PM CDT Height 162.6 cm (5' 4 ) 04/07/2025 2:34 PM CDT Body Mass Index 39.82 04/07/2025 2:34 PM CDT documented in this encounter Progress Notes * Barbara, November, [employer] - 04/07/2025 2:41 PM CDT Chief Complaint Patient presents with Follow Up 3 month History of Present Illness The patient is a 64-year-old male who presents for weight chronic conditions visit. He reports experiencing occasional weight gain, which he attributes to water retention. He has been using a medication prescribed last year for this issue, but the refill has . He uses it sparingly, only whenhe feels significant water weight gain, and has managed to stretch it over two years. 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 He has not seen a reduction furnace operator helper or undergone a stress test in nearly five years. He has follow-up with reduction furnace operator helper in May. Blood sugar levels have been consistently between 160 and 180. He takes metformin in the morning and half a dose in the evening, but increases the evening dose to a full tablet if his blood sugar rises. His A1c levels have been decreasing, from 7 to 5 on the last test. However, he experienced a spike in his blood sugar levels to 240 and 280 about two weeks ago, which he managed by increasing his metformin dose in the evening. After a week, his blood sugar levels returned to normal. He is seeking a refill of his hydrocodone prescription. He is currently taking Lyrica 200 mg twice daily for fibromyalgia but is requesting an increase. He reports that the medication is effective, but he still experiences pain in his hands and feet. He uses an albuterol inhaler daily, along with Spiriva. 10 point review of systems is otherwise negative except as mentioned above. Past Medical History: Diagnosis Date COPD with emphysema (CMS/HCC) Coronary stent occlusion CVD (cerebrovascular disease) Diabetes mellitus, type 2 (CMS/HCC) Heart attack ([facility]) with stent placement (2 stents and 2 heart attacks) HTN (hypertension) [place] (myocardial infarction) ([facility]) Current Outpatient Medications Medication Instructions albuterol sulfate HFA 90 mcg/actuation aerosol inhaler 2 Puffs, Inhalation, EVERY 6 HOURS PRN aspirin (JIMMY) 325 mg, TWO TIMES DAILY azelastine (ASTELIN) 137 mcg/actuation nasal spray USE TWO SPRAYS in each nostril TWICE DAILY carvediloL (COREG) 25 mg, TWO TIMES DAILY WITH MEALS clopidogreL (PLAVIX) 75 mg, Oral, DAILY fluconazole (DIFLUCAN) 100 mg, Oral, DAILY fluconazole (DIFLUCAN) 100 mg, Oral, DAILY fluticasone propionate (FLONASE) 50 mcg/spray [place], Suspension nasal inhaler USE TWO SPRAYS in each nostril EVERY DAY furosemide (LASIX) 40 mg, Oral, TWO TIMES DAILY HYDROcodone-acetaminophen (NORCO) 7.5-325 mg Tablet 1 Tablet, Oral, THREE TIMES DAILY PRN HYDROcodone-acetaminophen (NORCO) 7.5-325 mg Tablet 1 Tablet, Oral, THREE TIMES DAILY PRN, Do not fill until 02/06/2025 HYDROcodone-acetaminophen (NORCO) 7.5-325 mg Tablet 1 Tablet, Oral, THREE TIMES DAILY PRN, Do not fill until 03/08/2025 isosorbide mononitrate (IMDUR) 30 mg Extended Release 24 hour tablet TAKE 1 TABLET BY MOUTH EVERY DAY EVERY MORNING lancets Check blood sugar daily am. losartan (COZAAR) 50 mg, Oral, DAILY losartan (COZAAR) 100 mg, Oral, DAILY metFORMIN (GLUCOPHAGE) 1,000 mg, Oral, TWO TIMES DAILY WITH MEALS metOLazone (ZAROXOLYN) 2.5 mg, Oral, DAILY metoprolol tartrate (LOPRESSOR) 50 mg, Oral, TWO TIMES DAILY omega-3 fatty acids-fish oil 300-1,000 mg Capsule 1 Capsule, DAILY omeprazole (PRILOSEC) 20 mg, Oral, DAILY potassium chloride (KLOR-CON M20) 20 mEq Extended Release tablet 20 mEq, Oral, TWO TIMES DAILY pravastatin (PRAVACHOL) 40 mg tablet TAKE 1 TABLET BY MOUTH EVERY DAY with SUPPER pregabalin (LYRICA) 200 mg, Oral, TWO TIMES DAILY tiotropium (Spiriva Respimat) 2.5 mcg/actuation Mist 2 Puffs, Inhalation, DAILY Past Surgical History: Procedure Laterality Date HX HERNIA REPAIR HX HERNIA UMBILICAL REPAIR Past social, family, and medical history reviewed. BP (!) 144/64 Pulse 97 Temp 97.9 ??F (36.6 ??C) Resp 18 Ht 5' 4 (1.626 m) Wt 105.2 kg (232 lb) SpO2 93% BMI 39.82 kg/m?? Physical Exam Physical Exam Constitutional: Appearance: Normal appearance. HENT: Head: Normocephalic. Right Ear: External ear normal. Left Ear: External ear normal. Mouth/Throat: Mouth: Mucous membranes are moist. Eyes: Conjunctiva/sclera: Conjunctivae normal. Cardiovascular: Rate and Rhythm: Normal rate and regular rhythm. Pulses: Normal pulses. Heart sounds: Normal heart sounds. Pulmonary: Effort: Pulmonary effort is normal. Breath sounds: Normal breath sounds. Abdominal: General: Bowel sounds are normal. Palpations: Abdomen is soft. Musculoskeletal: General: Normal range of motion. Cervical back: Neck supple. Lumbar back: Tenderness present. Right lower leg: No edema. Left lower leg: No edema. Neurological: General: No focal deficit present. Mental Status: He is alert. Psychiatric: Mood and Affect: Mood normal. Heart Failure: Preserved Ejection Fraction (HFpEF) Guideline-directed medications (SOR): Current: Notes/plan: SGLT2i (2a) No value filed. Patient declined Titrate medication to reach blood pressure targets (1) losartan (COZAAR) 100 mg tablet [[id number]], losartan (COZAAR) 50 mg tablet [[id number]] Diuretics as needed (1) furosemide (LASIX) 40 mg tablet [[id number]], metOLazone (ZAROXOLYN) 2.5 mgtablet [[id number]] Advance care planning & code status Code Status: Prior Date of Last ACP: none Assessment & Plan ICD-10-CM ICD-9-CM 1. Essential hypertension I10 401.9 losartan (COZAAR) 100 mg tablet 2. Chronic bilateral low back pain with bilateral sciatica M54.42 724.2 M54.41 724.3 G89.29 338.29 3. Type 2 diabetes mellitus without complication, without long-term current use of insulin E11.9 250.00 CBC WITH DIFFERENTIAL COMPREHENSIVE METABOLIC PANEL HEMOGLOBIN A1C TSH LIPID PANEL CBC WITH DIFFERENTIAL COMPREHENSIVE METABOLIC PANEL HEMOGLOBIN A1C TSH LIPID PANEL 4. Chronic systolic congestive heart failure ([facility]) I50.22 428.22 metOLazone (ZAROXOLYN) 2.5 mg tablet 428.0 5. Fibromyalgia M79.7 729.1 6. Panlobular emphysema ([facility]) J43.1 492.8 Plan - Discussed chronic conditions and medications. - Labs obtained. - Refills sent to pharmacy. - His blood sugar levels have been running between 160-180 mg/dL. - An A1c test will be conducted today. - He takes metformin in the morning and half in the evening, but will take a whole dose in the evening if his blood sugar is high. - He is currently on Lyrica 200 mg twice a day but requested an increase to three times a day due to persistent pain in his hands and feet. A note will be sent to Dr. Khan to consider increasing the frequency of Lyrica. - A request will be sent to Dr. London for a refill of his hydrocodone prescription. - Encouraged to eat healthy and try to stay active. JIMMY Reynoso The author of this note, patient (or authorized business banking representative), and all other persons present consent to the audio recording of this visit for charting documentation purposes. This note was automatically generated, edited by a Quality Uniformer, and finalized by DALE Reynoso. documented in this encounter Plan of Treatment Upcoming Encounters Date Type Department Care Team (Late st Contact Info) Description 06/14/2025 11:20 AM FOOT SETTER Office Visit [facility] [address] [place] [phone] Kindra Khan DO [address] [place] [phone] Pending Results Name Type Priority Associated Diagnoses Date /Time CBC WITH DIFFERENTIAL Lab Routine Type 2 diabetes mellitus without complication, without long-term current use of insulin 04/07/2025 3:12 PM CDT COMPREHENSIVE METABOLIC PANEL Lab Routine Type 2 diabetes mellitus without complication, without long-term current use of insulin 04/07/2025 3:12 PM CDT HEMOGLOBIN A1C Lab Routine Type 2 diabetes mellitus without complication, without long-term current use of insulin 04/07/2025 3:12 PM CDT TSH Lab Routine Type 2 diabetes mellitus without complication, without long-term current use of insulin 04/07/2025 3:12 PM CDT LIPID PANEL Lab Routine Type 2 diabetes mellitus without complication, without long-term current use of insulin 04/07/2025 3:12 PM CDT Scheduled Orders Name Type Priority Associated Diagnoses Orde r Schedule CBC WITH DIFFERENTIAL Lab Routine Type 2 diabetes mellitus without complication, without long-term current use of insulin Expected: 04/07/2025, Expires: 04/07/2026 COMPREHENSIVE METABOLIC PANEL Lab Routine Type 2 diabetes mellitus without complication, without long-term current use of insulin Expected: 04/07/2025, Expires: 04/07/2026 HEMOGLOBIN A1C Lab Routine Type 2 diabetes mellitus without complication, without long-term current use of insulin Expected: 04/07/2025, Expires: 04/07/2026 TSH Lab Routine Type 2 diabetes mellitus without complication, without long-term current use of insulin Expected: 04/07/2025, Expires: 04/07/2026 LIPID PANEL Lab Routine Type 2 diabetes mellitus without complication, without long-term current use of insulin Expected: 04/07/2025, Expires: 04/07/2026 documented as of this encounter Visit Diagnoses Diagnosis Essential hypertension- Primary Unspecified essential hypertension Chronic bilateral low back pain with bilateral sciatica Type 2 diabetes mellitus without complication, without long-term current use of insulin Chronic systolic congestive heart failure (CMS/HCC) Chronic systolic heart failure Fibromyalgia Mylagia and myositis, unspecified Panlobular emphysema (CMS/HCC) Other emphysema documented in this encounter Care Teams Lead Instructor/Flight Attendant Relationship Specialty Start Date End Date Kindra Khan DO [address] [place] [phone] PCP - General Family Practice 10/28/21 documented as of this encounter
[2025-04-07 18:57] VITALS: BP 155/80; PULSE 83; RESP 16; TEMP 36.7; O2SAT 98; BMI 41.4
--- OUTSIDE RECORDS SUMMARY | 2025-04-07 18:58 | XMS_ITS | Encounter Summary ---
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
--- OUTSIDE RECORDS SUMMARY | 2025-04-07 18:58 | XMS_ITS | Encounter Summary ---
Author Organization [facility] Address [address] [place] [address] Care Team Providers Care Elevator Mechanic Name Role Phone Kindra Khan DO Primary Care Provider Encounter Details Date Type Department Care Team (Late Contact Info) Description 04/05/2025 External Device Data ST[place] ABSTRACTION Provider, Abstract NO ADDRESS ON FILE Social History Tobacco Use Types Packs/Day Years Used Date Smoking Tobacco: Every Day Cigarettes 0.5 30 Passive Smoke Exposure: Current Smokeless Tobacco: Never Alcohol Use Standard Drinks/Week Comments Never 0 (1 standard drink = 0.6 oz pur e alcohol) social Sex and Gender Information Value Date Recorded Sex Assigned at Not on file Legal Sex Male 4:10 AM TRAINING DEVELOPER Gender Identity Not on file Sexual Orientation Not on file documented as of this encounter Plan of Treatment Upcoming Encounters Date Type Department Care Team (Late st Contact Info) Description 06/14/2025 11:20 AM TRAINING DEVELOPER Office Visit [facility] Medicine [place] [address] [place] [address] Kindra Khan DO [address] [place] [phone] documented as of this encounter Visit Diagnoses Not on filedocumented in this encounter Care Teams Elevator Mechanic Relationship Specialty Start Date End Date Kindra Khan DO [address] [place] [address] PCP - General Family Practice 10/28/21 documented as of this encounter
--- OUTSIDE RECORDS SUMMARY | 2025-04-07 18:58 | XMS_ITS | Encounter Summary ---
Author Organization [facility] Address [address] [place] [address] Care Team Providers Care Vacuum Drier Operator Name Role Phone Kindra Khan DO Primary Care Provider Reason for Visit * Reason Onset Date Comments Medication Refill 04/07/2025 Encounter Details Date Type Department Care Team (Late st Contact Info) Description 04/07/2025 Refill [facility] Medicine [place] [address] [place] [phone] Kindra Khan DO [address] [place] [phone] Chronic bilateral low back pain with bilateral sciatica Social History Tobacco Use Types Packs/Day Years Used Date Smoking Tobacco: Every Day Cigarettes 0.5 30 Passive Smoke Exposure: Current Smokeless Tobacco: Never Alcohol Use Standard Drinks/Week Comments Never 0 (1 standard drink = 0.6 oz pur e alcohol) social Sex and Gender Information Value Date Recorded Sex Assigned at Not on file Legal Sex Male 4:10 AM NEURO OPHTHALMOLOGIST Gender Identity Not on file Sexual Orientation Not on file documented as of this encounter Miscellaneous Notes * Telephone Encounter - Trina Cazares - 04/07/2025 2:46 PM CDT Seen by November this afternoon documented in this encounter Plan of Treatment Upcoming Encounters Date Type Department Care Team (Late Contact Info) Description 06/14/2025 11:20 AM NEURO OPHTHALMOLOGIST Office Visit [facility] [address] [place] [phone] Kindra Khan DO [address] [place] [phone] documented as of this encounter Visit Diagnoses Diagnosis Chronic bilateral low back pain with bilateral sciatica documented in this encounter Care Teams Vacuum Drier Operator Relationship Specialty Start Date End Date Kindra Khan DO [address] [place] [address] PCP - General Family Practice 10/28/21 documented as of this encounter
--- OUTSIDE RECORDS SUMMARY | 2025-04-07 18:58 | XMS_ITS | Clinical Summary ---
Author Organization [facility] Address [address] [place] [address] Care Team Providers Care Men'S Locker Room Attendant Name Role Phone Kindra Khan DO Primary Care Provider Allergies Active Allergy Reactions Criticality Noted Date Comments Atorvastatin Muscle Pain Medium 10/21/2022 Venom-Wasp Anaphylaxis High 02/19/2015 Medications carvedilol (COREG) 25 mg tablet Take 25 mg by mouth 2 times daily with meals. Active omega-3 fatty acids-fish oil 300-1,000 mg Capsule Take 1 Cap by mouth daily. Active aspirin (JIMMY) 325 mg tablet Take 325 mg by mouth 2 times daily. 11/22/19 21 Active lancetsIndicati ons:Type 2 diabetes mellitus without complication, without long-term current use of insulin ([facility]) Check blood sugar daily am. 100 Each 3 06/27/20 22 Active fluconazole (DIFLUCAN) 100 mg tablet take 1 tablet by mouth every day 3 Tablet 2 05/29/20 24 Active omeprazole (PriLOSEC) 20 mg Capsule, Delayed Release(E.C.) take 1 capsule BY MOUTH EVERY DAY 90 Capsule 3 06/24/20 24 Active metoprolol tartrate (LOPRESSOR) 50 mg tablet TAKE ONE TABLET BY MOUTH TWICE DAILY 180 Tablet 3 07/20/20 24 Active furosemide (LASIX) 40 mg tablet TAKE 1 TABLET BY MOUTH TWICE DAILY 180 Tablet 3 07/20/20 24 Active isosorbide mononitrate (IMDUR) 30 mg Extended Release 24 hour tablet TAKE 1 TABLET BY MOUTH EVERY DAY EVERY MORNING 90 Tablet 3 07/26/20 24 Active potassium chloride (KLOR-CON M20) 20 mEq Extended Release tablet TAKE 1 TABLET BY MOUTH TWICE DAILY 180 Tablet 4 08/13/19 25 Active fluconazole (DIFLUCAN) 100 mg tablet Take 1 Tablet (100 mg) by mouth daily. 3 Tablet 2 09/09/19 25 Active HYDROcodone-nette taminophen (NORCO) 7.5-325 mg TabletIndicatio ns:Chronic bilateral low back pain with bilateral sciatica Take 1 Tablet by mouth 3 times daily as needed for Pain, Moderate. Max Daily Amount: 3 Tablets 90 Tablet 01/07/20 25 Active HYDROcodone-nette taminophen (NORCO) 7.5-325 mg TabletIndicatio ns:Chronic bilateral low back pain with bilateral sciatica Take 1 Tablet by mouth 3 times daily as needed for Pain, Moderate. Do not fill until 02/06/2025 Max Daily Amount: 3 Tablets 90 Tablet 01/07/20 25 Active HYDROcodone-nette taminophen (NORCO) 7.5-325 mg TabletIndicatio ns:Chronic bilateral low back pain with bilateral sciatica Take 1 Tablet by mouth 3 times daily as needed for Pain, Moderate. Do not fill until 03/08/2025 Max Daily Amount: 3 Tablets 90 Tablet 01/07/20 25 Active losartan (COZAAR) 50 mg tablet Take 1 Tablet (50 mg) by mouth daily. 90 Tablet 4 01/07/20 25 Active albuterol sulfate HFA 90 mcg/actuation aerosol inhaler Take 2 Puffs by inhalation every 6 hours as needed for Shortness of Breath. 8.5 Gram 6 01/07/20 25 Active clopidogreL (PLAVIX) 75 mg Tablet Take 1 Tablet (75 mg) by mouth daily. 100 Tablet 3 01/07/20 25 Active pregabalin (LYRICA) 200 mg Capsule Take 1 Capsule (200 mg) by mouth 2 times daily. 60 Capsule 5 01/07/20 25 Active tiotropium (Spiriva Respimat) 2.5 mcg/actuation Mist Take 2 Puffs by inhalation daily. 4 Gram 5 01/07/20 25 Active azelastine (ASTELIN) 137 mcg/actuation nasal sprayIndication s:Seasonal allergic rhinitis, unspecified trigger USE TWO SPRAYS in each nostril TWICE DAILY 30 mL 2 02/15/20 25 Active fluticasone propionate (FLONASE) 50 mcg/spray [place], Suspension nasal inhalerIndicati ons:Seasonal allergic rhinitis, unspecified trigger USE TWO SPRAYS in each nostril EVERY DAY 16 Gram 3 03/16/20 25 Active pravastatin (PRAVACHOL) 40 mg tablet TAKE 1 TABLET BY MOUTH EVERY DAY with SUPPER 30 Tablet 03/22/20 25 Active metFORMIN (GLUCOPHAGE) 1,000 mg tabletIndicatio ns:Type 2 diabetes mellitus without complication, without long-term current use of insulin (CMS/HCC) TAKE 1 TABLET BY MOUTH TWICE DAILY with meals 60 Tablet 03/22/20 25 Active metOLazone (ZAROXOLYN) 2.5 mg tabletIndicatio ns:Chronic systolic congestive heart failure (CMS/HCC) Take 1 Tablet (2.5 mg) by mouth daily. 90 Tablet 2 04/07/20 25 Active losartan (COZAAR) 100 mg tabletIndicatio ns:Essential hypertension Take 1 Tablet (100 mg) by mouth daily. 90 Tablet 3 04/07/20 25 Active metOLazone (ZAROXOLYN) 2.5 mg tablet Take 1 Tablet (2.5 mg) by mouth daily. 90 Tablet 2 12/04/19 23 025 Discontinued(R eorder) fluticasone propionate (FLONASE) 50 mcg/spray [place], Suspension nasal inhalerIndicati ons:Seasonal allergic rhinitis, unspecified trigger Administer 2 Sprays in each nostril daily. 16 Gram 3 04/30/20 24 025 Discontinued metFORMIN (GLUCOPHAGE) 1,000 mg tabletIndicatio ns:Type 2 diabetes mellitus without complication, without long-term current use of insulin ([facility]) TAKE 1 TABLET BY MOUTH TWICE DAILY with meals 60 Tablet 1 01/21/20 25 025 Discontinued losartan (COZAAR) 100 mg tablet TAKE 1 TABLET BY MOUTH EVERY DAY WITH 50MG DOSE 30 Tablet 1 01/21/20 25 025 Discontinued pravastatin (PRAVACHOL) 40 mg tablet TAKE 1 TABLET BY MOUTH EVERY DAY with SUPPER 30 Tablet 1 01/21/20 25 025 Discontinued losartan (COZAAR) 100 mg tablet TAKE 1 TABLET BY MOUTH EVERY DAY WITH 50MG DOSE 30 Tablet 03/22/20 25 025 Discontinued Active Problems Problem Noted Date Diagnosed Date Atherosclerosis of [place] co ronary artery of [place] heart without angina pectoris 10/28/2021 Cigarette dependence 10/28/2021 Morbid obesity with body mass index (BMI) of 40. 0 or higher 10/28/2021 Mixed hyperlipidemia 11/21/2020 Essential hypertension 11/21/2020 Congestive heart failure 11/21/2020 Chronic obstructive pulmonary disease 11/21/2020 Gastroesophageal reflux disease 11/21/2020 Chronic neck pain 11/21/2020 Chronic bilateral low back pain with bilateral s ciatica 11/21/2020 Muscle spasm of back 11/21/2020 Type 2 diabetes mellitus wit hout complication, without long-term current use of insulin 11/21/2020 Hx of heart artery stent 11/21/2020 History of VT (myocardial infarction) 11/21/2020 Anaphylactic reaction 02/19/2015 Polycythemia 02/19/2015 Encounters Date Type Department Care Team Description 04/07/2025 2:40 PM CDT Office Visit [facility] [address] [place] [address] Jimenez, November, TRANSITION NURSE Essential hypertension (Primary Dx); Chronic bilateral low back pain with bilateral sciatica; Type 2 diabetes mellitus without complication, without long-term current use of insulin; Chronic systolic congestive heart failure (CMS/HCC); Fibromyalgia; Panlobular emphysema (CMS/HCC) 04/07/2025 Refill [facility] [address] [place] [address] Kindra Khan, DO Chronic bilateral low back pain with bilateral sciatica 04/05/2025 External Device Data STL ABSTRACTION Provider, Abstract 03/22/2025 Refill [facility] [address] [place] [address] Kindra Khan, DO Type 2 diabetes mellitus without complication, without long-term current use of insulin (CMS/HCC) 03/16/2025 Refill [facility] [address] [place] [address] November, TRANSITION NURSE Seasonal allergic rhinitis, unspecified trigger 03/15/2025 External Device Data STL ABSTRACTION Provider, Abstract 03/01/2025 Telephone [facility] [address] [place] [address] Kindra Khan DO Provider Call 02/23/2025 External Device Data STL ABSTRACTION Provider, Abstract 02/22/2025 External Device Data STL ABSTRACTION Provider, Abstract 02/14/2025 Refill [facility] [address] [place] [address] Jimenez, November, TRANSITION NURSE Seasonal allergic rhinitis, unspecified trigger 02/01/2025 External Device Data STL ABSTRACTION Provider, Abstract 01/26/2025 External Device Data STL ABSTRACTION Provider, Abstract 01/25/2025 External Device Data STL ABSTRACTION Provider, Abstract 01/20/2025 Refill [facility] [address] [place] [address] Kindra Khan DO Type 2 diabetes mellitus without complication, without long-term current use of insulin ([facility]) 01/06/2025 1:20 PM CDT Office Visit [facility] [address] [place] [address] Kindra Khan DO Panlobular emphysema ([facility]/HCC) (Primary Dx); Chronic bilateral low back pain with bilateral sciatica; Chronic systolic congestive heart failure ([facility]); Morbid obesity with body mass index (BMI) of 40.0 or higher ([facility]/HCC); Type 2 diabetes mellitus without complication, without long-term current use of insulin; Atherosclerosis of [place] coronary artery of [place] heart without angina pectoris; Essential hypertension; History of VT (myocardial infarction); Mixed hyperlipidemia; Gastroesophageal reflux disease without esophagitis; Cigarette dependence from Last 3 Months Immunizations Immunization Administration Dates Next Due (ADACEL/BOOSTRIX)(10 YR UP) TDAP VACCINE, 0.5ML, IM 01/18/2015 (SPIKEVAX) (12 YRS UP PRIMAR Y SERIES) COVID-19 VACCINE - MRNA-1273(PF) 100 MCG/0.5 ML IM SUSP 04/08/2021,03/01/2021 (TWINRIX)(18 YRS UP) HEPATIT IS A AND HEPATITIS B VACCINE ADULT, 1 ML, IM 01/18/2015,11/15/2005,06/11/2005 Hepatitis A Vaccine 06/11/2005 INFLUENZA VACCINE QUADRIVALE NT 6 MOS UP PF IM 04/29/2023,06/27/2022 INFLUENZA VACCINE TRIVALENT SPLIT VIRUS, (6 MOS UP), 0.5ML (PF), IM 04/30/2024 Influenza Seasonal Unspecifi ed Formulation IM 05/22/2014 Pneumococcal conjugate, unsp ecified formulation 01/20/2015 Family History Medical History Relation Name Comments Prostate Cancer Brother 1 Aryan Heart Disease Brother 2 Kevin Parkinson's Disease Brother 2 Kevin Heart Disease Brother 3 Mark No Known Problems Brother 4 Myles No Known Problems Brother 5 Arslan Heart Attack Father Heart Disease Father Unknown Mother Cancer Sister 1 Jennifer Diabetes Sister 1 Jennifer Hypertension Sister 1 Jennifer No Known Problems Sister 2 Zoraida Diabetes Sister 3 Kezia Psoriasis Sister 3 Kezia No Known Problems Sister 4 Laura Heart Failure Sister 5 Linda Relation Name Status Comments Brother 1 Aryan Alive Brother 2 Kevin Alive Brother 3 Mark Alive Brother 4 Myles Brother 5 Arslan Alive Father Mother Sister 1 Jennifer Alive Sister 2 Zoraida Alive Sister 3 Kezia Alive Sister 4 Laura Alive Sister 5 Lnida Sister 6 Ester Social History Tobacco Use Types Packs/Day Years [...] on file Legal Sex Male 4:10 AM CASTING PLUG ASSEMBLER Gender Identity Not on file Sexual Orientation Not on file Last Filed Vital Signs Vital Sign Reading [...] Mass Index 39.82 04/07/2025 2:34 PM CDT Plan of Treatment Upcoming Encounters Date Type Department Care Team (Late st Contact Info) Description 06/14/2025 11:20 AM CASTING PLUG ASSEMBLER Office Visit [facility] [place] [address] [place] [address] Kindra Khan, [address] [place] [address] Health Maintenance Due Date Last Done Comments COLORECTAL SCREENING 2006 FIT/FOBT Q 1 year 2006 Flex Sig/CT Colonography Q 5 years 2006 ZOSTER VACCINE (1 of 2) 11/20/2011 RSV VACCINE (60+ or ) (1 - Risk 60-74 years 1-dose series) 2021 DIABETES ANNUAL FOOT EXAM 10/26/2022 10/26/2021 DIABETES HBA1C Q 6 MONTHS 01/23/20242022, 06/27/2022, 10/26/2021 COVID-19 Vaccine (3 - 2023-2 5 season) 2024 04/08/2021, 03/01/2021 DIABETES: A1C (Auto Order) 07/24/202407/24, 06/27/2022, 10/26/2021 Preventative Visit- Commercial 08/11/2024 DIABETES ANNUAL RETINAL EXAM 12/10/2024 12/11/2023 DTAP/TDAP/TD VACCINES (2 - T d or Tdap) 01/18/2025 01/18/2015 INFLUENZA VACCINE (#1) 2025 4, 04/29/2023, 06/27/2022, Additional history exists LDL CHOLESTEROL ANNUAL 04/05/2025 4, 07/24/2023, 06/27/2022, Additional history exists DIABETES MICROALBUMIN ANNUAL SCREEN 04/30/2025 04/30/2024 Colorectal Cancer Screening 05/23/2027 FIT-DNA Q 3 years 05/23/2027 05/23/2024 Procedures Procedure Name Priority Date/Time Associated Diagnosis Comments COLON CANCER SCREEN, STOOL DNA Routine 05/23/2024 6:00 PM CDT Screening for colon cancer MICROALBUMIN/CREATIN INE RATIO, RANDOM UR Routine 04/30/2024 2:34 PM CDT Type 2 diabetes mellitus without complication, without long-term current use of insulin (CMS/HCC) LIPID PANEL Routine 04/05/2024 HM DIABETES EYE EXAM Routine 12/11/2023 10:53 AM CDT HEMOGLOBIN A1C Routine 07/24/2023 4:04 PM CASTING PLUG ASSEMBLER Type 2 diabetes mellitus without complication, without long-term current use of insulin (CMS/HCC) from Last 3 Months or Most Recently Relevant to Health Maintenance Results * COLON CANCER SCREEN, STOOL DNA (05/23/2024 6:00 PM CDT) COLOGUARD RESULT Negative Negative [facility] Comment: NEGATIVE TEST RESULT. A negative Cologuard result indicates a low likelihood that a colorectal cancer (CRC) or advanced adenoma (adenomatous polyps with more advanced pre-malignant features) is present. The chance that a person with a negative Cologuard test has a colorectal cancer is less than 1 in 1500 (negative predictive value >99.9%) or has an advanced adenoma is less than 5.3% (negative predictive value 94.7%). These data are based on a prospective cross-sectional study of 10,000 individuals at average risk for colorectal cancer who were screened with both Cologuard and colonoscopy. (Shantel Mccullough al, N Engl J Med 2014;370(14):5891-6589) The normal value (reference range) for this assay is negative. COLOGUARD RE-SCREENING RECOMMENDATION: Periodic colorectal cancer screening is an important part of preventive healthcare for asymptomatic individuals at average risk for colorectal cancer. Following a negative Cologuard result, the [place] [employer] and U.S. Multi-Society Task Force screening guidelines recommend a Cologuard re-screening interval of 3 years. References: [place] [employer] Guideline for Colorectal Cancer Screening: https://www.cancer.org/cancer/otbsb-lhxrct-aqzust/xhgqvgpgv-dpuliyccy-hvfphfq/ac s-rec ommendations.html.; Cesario DK, Norman TREJO, Carlos DavilaK, Colorectal Cancer Screening: Recommendations for Physicians and Patients from the U.S. Multi-Society Task Force on Colorectal Cancer Screening , Am J Gastroenterology 2017; 112:8770-5672. TEST DESCRIPTION: Composite algorithmic analysis of stool DNA-biomarkers with hemoglobin immunoassay. Quantitative values of individual biomarkers are not reportable and are not associated with individual biomarker result reference ranges. Cologuard is intended for colorectal cancer screening of adults of either sex, 45 years or older, who are at average-risk for colorectal cancer (CRC). Cologuard has been approved for use by the U.S. FDA. The performance of Cologuard was established in a cross sectional study of average-risk adults aged 50-84. Cologuard performance in patients ages 45 to 49 years was estimated by sub-group analysis of near-age groups. Colonoscopies performed for a positive result may find as the most clinically significant lesion: colorectal cancer [4.0%], advanced adenoma (including sessile serrated polyps greater than or equal to 1cm diameter) [20%] or non- advanced adenoma [31%]; or no colorectal neoplasia [45%]. These estimates are derived from a prospective cross-sectional screening study of 10,000 individuals at average risk for colorectal cancer who were screened with both Cologuard and colonoscopy. (Shantel Mccullough al, N Engl J Med 2014;370(14):4005-6046.) Cologuard may produce a false negative or false positive result (no colorectal cancer or precancerous polyp present at colonoscopy follow up). A negative Cologuard test result does not guarantee the absence of CRC or advanced adenoma (pre-cancer). The current Cologuard screening interval is every 3 years. ([place] [employer] and U.S. Multi-Society Task Force). Cologuard performance data in a 10,000 patient pivotal study using colonoscopy as the reference method can be accessed at the following location: www.CitySwag.youbeQ - Maps With Life/results. Additional description of the Cologuard test process, warnings and precautions can be found at www.Yuantikurd.youbeQ - Maps With Life. Stool STOOL SPECIMEN / Unknown 05/23/2024 6:00 PM CDT 05/26/2024 4:13 PM CDT Kindra Khan DO BODY FLUIDS AND STOOLS [facility] CLIA # [id number] [address] , [address] [place] [address] * MICROALBUMIN/CREATININE RATIO, RANDOM UR (04/30/2024 2:34 PM CDT) Pathologist [facility] Creatinine, Urine 117 20 - 320 mg/dL [facility] MICROALBUMIN, URINE 3.3 See Note: mg/dL [facility] Comment: Reference Range: Reference Range Not established MICROALBUMIN/CREAT RATIO, UR 28 <30 mg/g creat [facility] Comment: The ADA defines abnormalities in albumin excretion as follows: Albuminuria Category Result (mg/g creatinine) Normal to Mildly increased <30 Moderately increased 30-299 Severely increased > OR = 300 The ADA recommends that at least two of three specimens collected within a 3-6 month period be abnormal before considering a patient to be within a diagnostic category. Test Performed at: [facility] [address] [place] [address] Donny Wood MD Urine URINE SPECIMEN OBTAINED BY CLEAN CATCH PROCEDURE / Unknown 04/30/2024 2:34 PM CDT 05/01/2024 3:46 AM CDT November Jimenez TRANSITION NURSE URINE ORDERABLES Final Result Performing Organization Address City/[facility]/ZIP Co de Phone Number [facility] [phone] [facility] [address] [facility] [place] [address] * LIPID PANEL (04/05/2024) ABSTRACTED CHOLESTEROL 95 ABSTRACTED TRIGLYCERIDE 291 ABSTRACTED HDL 21 ABSTRACTED LDL CALCULATED 16 Blood 04/05/2024 Kindra Darek Khan DO CHEMISTRY ORDERABLES Final Result * DIABETES EYE EXAM (12/11/2023 10:53 AM CDT) us Abstract Provider HEALTH MAINTENANCE Final Resul t * (ABNORMAL) HEMOGLOBIN A1C (07/24/2023 4:04 PM CASTING PLUG ASSEMBLER) HEMOGLOBIN A1C 6.2(H) <5.7 % of total Hgb [facility] Comment: For someone without known diabetes, a hemoglobin A1c value between 5.7% and 6.4% is consistent with prediabetes and should be confirmed with a follow-up test. For someone with known diabetes, a value <7% indicates that their diabetes is well controlled. A1c targets should be individualized based on duration of diabetes, age, comorbid conditions, and other considerations. This assay result is consistent with an increased risk of diabetes. Currently, no consensus exists regarding use of hemoglobin A1c for diagnosis of diabetes for children. ESTIMATED AVERAGE GLUCOSE (MG/DL) 131 mg/dL [facility] ESTIMATED AVERAGE GLUCOSE (MMOL/L) 7.3 mmol/L [facility] Comment: Test Performed at: [facility] [address] [place] [address] Donny Wood MD Blood 07/24/2023 4:04 PM CASTING PLUG ASSEMBLER 07/25/2023 3:12 AM CASTING PLUG ASSEMBLER Kindra Khan DO CHEMISTRY ORDERABLES Final Result [facility] [phone] [facility] [address] [place] [address] from Last 3 Months or Most Recently Relevant to Health Maintenance [place] [address] Advance Directives For more information, please contact: [phone] * Full Code (Latest Code Status on File) Date Activated Date Inactivated Comments 02/19/2015 5:06 PM 02/20/2015 1:16 PM Care Teams Men'S Locker Room Attendant Relationship Specialty Start Date End Date Kindra Khan DO [address] [place] [address] PCP - General Family Practice 10/28/21
--- OUTSIDE RECORDS SUMMARY | 2025-04-07 18:58 | XMS_ITS | Clinical Summary ---
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 1 Active furosemide (LASIX) 40 mg tablet Take 40 mg by mouth 2 times daily. 1 Active potassium chloride (KLOR-CON) 20 mEq Extended Release tablet Take 20 mEq by mouth 2 times daily. Active metoprolol tartrate (LOPRESSOR) 50 mg tablet Take 50 mg by mouth 2 times daily. Active clopidogreL (PLAVIX) 75 mg Tablet Take 75 mg by mouth daily. Active isosorbide mononitrate (IMDUR) 30 mg Extended Release 24 hour tablet Take 30 mg by mouth daily in the morning. Active tiotropium (Spiriva Respimat) 2.5 mcg/actuation Mist Take 2 Puffs by inhalation daily. Active atorvastatin (LIPITOR) 40 mg tablet Take 40 mg by mouth daily. Active budesonide-formo teroL (SYMBICORT) 80-4.5 mcg/actuation HFA Aerosol Inhaler Take 2 Puffs by inhalation 2 times daily. Active losartan (COZAAR) 100 mg tablet Take 150 mg by mouth daily. Active aspirin (JIMMY) 325 mg tablet Take 325 mg by mouth 2 times daily. Active tiZANidine (ZANAFLEX) 2 mg TabletIndication s:Chronic neck pain,Chronic bilateral low back pain with bilateral sciatica,Muscle spasm of back Take 1 Tablet (2 mg) by mouth daily at bedtime. 30 Tablet 1 1 Active omeprazole (PriLOSEC) 20 mg Capsule, Delayed Release(E.C.)Ind ications:Gastroe sophageal reflux disease, unspecified whether esophagitis present Take 1 Capsule (20 mg) by mouth daily. 90 Capsule 3 1 Active metFORMIN (GLUCOPHAGE) 1,000 mg tabletIndication s:Type 2 diabetes mellitus without complication, without long-term current use of insulin (CMS/HCC) Take 0.5 Tablets (500 mg) by mouth 2 times daily with meals. 90 Tablet 1 1 Active pregabalin (LYRICA) 150 mg CapsuleIndicatio ns:Chronic neck pain,Chronic bilateral low back pain with bilateral sciatica Take 1 Capsule (150 mg) by mouth every 12 hours. 60 Capsule 2 1 Active Active Problems Problem Noted Date Diagnosed Date Mixed hyperlipidemia 11/21/2020 Essential hypertension 11/21/2020 Congestive heart failure 11/21/2020 Chronic obstructive pulmonary disease 11/21/2020 Gastroesophageal reflux disease 11/21/2020 Chronic neck pain 11/21/2020 Chronic bilateral low back pain with bilateral s ciatica 11/21/2020 Muscle spasm of back 11/21/2020 Type 2 diabetes mellitus wit hout complication, without long-term current use of insulin 11/21/2020 Hx of heart artery stent 11/21/[address] (myocardial infarction) 11/21/2020 Immunizations Immunization Administration Dates Next Due Hepatitis A Vaccine 06/11/2005 Family History Medical History Relation Name Comments Heart Disease Brother 1 Kevin Parkinson's Disease Brother 1 Kevin Heart Disease Brother 2 Amrk No Known Problems Brother 3 Myles No Known Problems Brother 4 Arslan Prostate Cancer Brother 5 Aryan Heart Attack Father Unknown Mother Cancer Sister 1 Jennifer Diabetes Sister 1 Jennifer Hypertension Sister 1 Jennifer No Known Problems Sister 3 Zoraida Diabetes Sister 4 Kezia Psoriasis Sister 4 Kezia No Known Problems Sister 5 Laura Heart Failure Sister 6 Linda Relation Name Status Comments Brother 1 Kevin Alive Brother 2 Mark Alive Brother 3 Myles Brother 4 Arslan Alive Brother 5 Aryan Alive Father Mother Sister 1 Jennifer Alive Sister 2 Ester Sister 3 Zoraida Alive Sister 4 Kezia Alive Sister 5 Laura Alive Sister 6 Linda Social History Tobacco Use Types Packs/Day Years Used Date Smoking Tobacco: Every Day Cigarettes 0.5 40 Smokeless Tobacco: Never Alcohol Use Standard Drinks/Week Comments Never 0 (1 standard drink = 0.6 oz pur e alcohol) Sex and Gender Information Value Date Recorded Sex Assigned at Not on file 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 Gender Identity Not on file Sexual Orientation Not on file Last Filed Vital Signs Vital Sign Reading Time Taken Comments Blood Pressure 112/42 11/21/2020 3:16 PM CDT Pulse 74 11/21/2020 3:31 PM CDT Temperature 36.3 C (97.3 F) 11/21/2020 3:16 PM CDT Respiratory Rate - - Oxygen Saturation 95% 11/21/2020 3:31 PM CDT RA Inhaled Oxygen Concentration - - Weight 116.4 kg (256 lb 9.6 oz) 11/21/2020 3:16 PM CDT Height 162.6 cm (5' 4 ) 11/21/2020 3:16 PM CDT Body Mass Index 44.05 11/21/2020 3:16 PM CDT Plan of Treatment Health Maintenance Due Date Last Done Comments DIABETES ANNUAL FOOT EXAM 11/20/1979 DIABETES ANNUAL RETINAL EXAM 11/20/1979 DIABETES HBA1C Q 6 MONTHS 11/20/1979 DIABETES MICROALBUMIN ANNUAL SCREEN 11/20/1979 LDL CHOLESTEROL ANNUAL 11/20/1979 DTAP/TDAP/TD VACCINES (1 - Tdap) 1980 COLORECTAL SCREENING 2006 Colorectal Cancer Screening 2006 FIT-DNA Q 3 years 2006 FIT/FOBT Q 1 year 2006 Flex Sig/CT Colonography Q 5 years 2006 ZOSTER VACCINE (1 of 2) 11/20/2011 RSV VACCINE (60+ or ) (1 - Risk 60-74 years 1-dose series) 2021 INFLUENZA VACCINE (#1) 2025 06/24/2019, 2013 Insurance [employer]
[2025-04-07 22:39] VITALS: BP 157/91; PULSE 74; RESP 18; O2SAT 94
--- NOTE | 2025-04-07 23:11 | XRR_ITS ---
PROCEDURE INFORMATION: Exam: XR Chest Exam date and time: 04/07/2025 11:14 PM Age: 64 years old Clinical indication: Shortness of breath; Chest pressure; Chest pain with SOB; Additional info: Cp/sob TECHNIQUE: Imaging protocol: Radiologic exam of the chest. Views: 1 view. COMPARISON: CR XR chest 1V portable [id number] 12/04/2022 10:47 AM FINDINGS: Lungs: No confluent consolidation. Pleural spaces: No pleural effusion. No pneumothorax is seen. Heart/Mediastinum: The heart is normal in size. Mediastinal contours are within normal limits. Bones/joints: No lytic or blastic lesions. No acute osseous abnormality. Intraperitoneal space: No free air is seen under the diaphragm. XR/XR chest 1V portable [id number] IMPRESSION: No acute pulmonary process.
--- NOTE | 2025-04-07 23:11 | ECG_ITS ---
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 Measurements Intervals [place] Rate: 83 P: 69 [place]: 179 QRS: -54 QRSD: 114 T: 47 QT: 367 QTc: 432 Interpretive Statements SINUS RHYTHM LEFT AXIS DEVIATION [QRS AXIS < -30] PATTERN CONSISTENT WITH PULMONARY DISEASE MODERATE INTRAVENTRICULAR CONDUCTION DELAY [105+ ms QRS DURATION, 80+ ms Q/S IN V1/V2, NO Q AND 60+ ms R IN I/aVL/V5/V6] Compared to ECG 12/04/2022 11:44:06 Intraventricular conduction delay now present Myocardial infarct finding no longer present Electronically Signed On 04-08-2025 22:40:52 CDT by Harsha Egan M.D. [id number]
--- NOTE | 2025-04-07 23:23 | W.ED.CHESTPA ---
HPI - Chest Pain General: Chief Complaint: Chest Pain Stated Complaint: CP SOB tingling in left hand headache Time Seen by Provider: 04/07/25 22:33 Source: patient Mode of arrival: ambulatory Limitations: no limitations History of Present Illness: Patient is a 64-year-old male who presents with chest pain for the past few days. Stating it has been intermittent, but today has been more constant. Reports a history of cardiac stents, stating that these were placed in 2012 due to MIs at the time. He has not had issues with chest pain like this since then, and notes that he has been having associated shortness of breath, peripheral edema, and headaches. He also notes that his left upper extremity has been experiencing numbness and tingling all the way to the hands. 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 He states that he has not had echocardiogram or stress testing for years, and has not seen medicine man for 5 years. No back pain, no recent medication changes. He is on Plavix. His vitals are stable at this time. 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 Onset (ago): day(s) Timing of current episode: episodic Prior episodes: Yes Onset: during rest Pain location: substernal Pain radiation: left arm Severity: moderate Quality: tightness Associated symptoms: Reports dyspnea; Deny abdominal pain, fever(s), nausea, palpitations or vomiting Related Data Home Medications ?Medication ?Instructions ?Recorded ?Confirmed metformin 1,000 mg tablet 1,000 mg PO BID 09/18/20 02/09/24 omega-3 fatty acids 1,000 mg 1,000 mg PO DAILY 09/18/20 02/09/24 capsule (Fish Oil Concentrate) omeprazole 20 mg capsule,delayed 20 mg PO DAILY 09/18/20 02/09/24 release pregabalin 150 mg capsule (Lyrica) 150 mg PO BID 09/18/20 02/09/24 nitroglycerin 0.4 mg sublingual 0.4 mg sublingual Q5M PRN Chest 10/03/20 02/09/24 tablet Pain hydrocodone 5 mg-acetaminophen 325 1 - 2 tab PO BEDTIME PRN Pain 12/04/22 02/09/24 mg tablet losartan 100 mg tablet 100 mg PO QPM 12/04/22 02/09/24 metolazone 2.5 mg tablet 2.5 mg PO DAILY PRN Edema 12/04/22 02/09/24 pravastatin 40 mg tablet 40 mg PO DAILY 12/04/22 02/09/24 Previous Rx's ?Medication ?Instructions ?Recorded albuterol sulfate 90 mcg/actuation 2 inh inhalation Q6H PRN shortness 05/03/21 aerosol inhaler of breath or wheezing #8 grams metoprolol tartrate 50 mg tablet 50 mg PO BID #180 tabs 08/13/21 tiotropium bromide 2.5 2 puff inhalation DAILY #4 grams 08/13/21 mcg/actuation mist for inhalation (Spiriva Respimat) losartan 50 mg tablet 50 mg PO DAILY #90 tabs 08/28/21 clopidogrel 75 mg tablet 75 mg PO DAILY #30 tabs 10/08/21 isosorbide mononitrate 30 mg 30 mg PO DAILY #30 tabs 10/08/21 tablet,extended release 24 hr potassium chloride 20 mEq 20 meq PO DAILY #30 tabs 01/25/22 tablet,extended release(part/cryst) (Klor-Con M) furosemide 40 mg tablet 40 mg PO BID #60 tabs 03/08/22 Allergies Allergy/AdvReac Type Severity Reaction Status Date / Time No Known Allergies Allergy Verified 02/09/24 12:12 Review of Systems General: Reports: 10 or more systems reviewed and unremarkable except in HPI and below Const: Denies: fever(s), chills or fatigue Eyes: Denies: change in vision ENMT: Denies: throat pain, ear or mastoid pain or nasal discharge Card: Reports: chest pain; Denies: palpitations, swelling of feet/ankles or lightheadedness Resp: Reports: dyspnea; Denies: productive cough or wheezing GI: Denies: abdominal pain, nausea, vomiting, diarrhea or constipation : Denies: flank pain, difficulty urinating, dysuria or urinary frequency Musc: Denies: neck pain, back pain or joint pain Skin/Breast: Denies: rash Neuro: Reports: headache(s) and numbness in extremities (Left upper extremity); Denies: weakness in extremities PFSH ED PFSH: Medical History (Updated 04/08/25 @ 01:11 by FRANCK Frazier) COPD (chronic obstructive pulmonary disease) CAD (coronary artery disease) Surgical History Stented coronary artery H/O umbilical hernia repair Social History Smoking and tobacco/nicotine status: current every day tobacco/nicotine user cigarettes Packs smoked per day: 0.5 Years cigarettes smoked: 40 [ Other cigarette details: 3-4ppd 7 years ago] Quit status (tobacco/nicotine): considering quitting Second hand smoke exposure: No Alcohol intake: former Substance/Drug Use: never Lives independently: Yes Household members: spouse Housing: House Marital status: service: No Current occupational status: employed 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 Pets and animals: No Do you think of yourself as: Straight/Heterosexual Current gender identity: Male Physical Exam Const: COMMON NORMALS: no acute distress, patient oriented x3 and no limitations GENERAL APPEARANCE: cooperative, comfortable and well developed NUTRITIONAL APPEARANCE: obese ORIENTATION/CONSCIOUSNESS: Yes awake, Yes oriented to person, Yes oriented to place and Yes oriented to time HENMT: COMMON NORMALS: normocephalic, atraumatic and hearing grossly normal bilaterally HEAD & SCALP: normocephalic and atraumatic Eye: COMMON NORMALS: Equal, round and reactive pupils present, EOMs intact bilaterally and conjunctivae normal CONJUNCTIVA: Yes conjunctivae normal PUPIL: Yes Equal, round and reactive pupils present Neck/C-Spine: COMMON NORMALS: full ROM, supple and no JVD Resp: COMMON NORMALS: normal respiratory effort, No retractions, No use of accessory muscles and clear to auscultation bilaterally AUSCULTATION: clear to auscultation bilaterally Cardio: COMMON NORMALS: no JVD, regular rate, regular rhythm, No clicks present (Cardio), No murmurs present (Cardio) and No rub (Cardio) RATE: regular rate RHYTHM: regular rhythm GI: COMMON NORMALS: Normal to inspection, nondistended, normoactive bowel sounds present, Soft to palpation and non-tender INSPECTION: Yes central obesity AUSCULTATION: Yes normoactive bowel sounds PALPATION: Yes Soft to palpation RECTAL EXAM: Yes deferred Extremity: COMMON NORMALS: full ROM and capillary refill normal NARRATIVE EXTREMITY EXAM: Trace pitting edema bilaterally Neuro: COMMON NORMALS: patient oriented x3, moves all extremities, no focal motor deficits and no sensory deficits noted SENSORIUM/ORIENTATION: Yes oriented to person, Yes oriented to place and Yes oriented to time Psych: COMMON NORMALS: mental status grossly normal and Normal thought process present THOUGHT PROCESS: Normal thought process present Skin: COMMON NORMALS: no rashes or lesions noted GENERAL SKIN EXAM: no rashes or lesions noted Course Vital Signs: Vital signs: Vital Signs Temperature 98.1 F 04/07/25 18:57 Pulse Rate 74 04/07/25 22:39 Respiratory Rate 18 04/07/25 22:39 Blood Pressure 157/91 04/07/25 22:39 Pulse Oximetry 94 04/07/25 22:39 Oxygen Delivery Me thod Room Air 04/07/25 22:39 MDM - Chest Pain Medical Decision Making This patient was a 61-year-old male with history of prior KS and stents presenting with 3 days substernal chest pain radiating to the left arm, associate with dyspnea. Pain had been improved on arrival but still moderate, he is given 324 mg baby aspirin. Given high risk history typical anginal features, ACS remains concerned despite his normal initial EKG, troponin, chest x-ray, and reassuring labs. He is already taking Plavix at home. I spoke with Dr. Mcdonald, medicine man, who is recommending initiation of Nitropaste and therapeutic enoxaparin, with plan for inpatient monitoring and stress test in the morning. I did discuss this case with Dr. Shane, hospitalist, who is excepted the patient for admission to telemetry for ACS rule out, serial troponins and EKGs, and further cardiology directed management. Informed patient and family of this plan, all of the questions and concerns addressed. Lab Data 04/07/25 23:46 04/07/25 23:46 Radiology Impressions Chest X-Ray 04/07/25 23:11 IMPRESSION: No acute pulmonary process. Laboratory Results WBC 6.62 10^3/uL (3.29-11.43) 04/07/25 23:46 RBC 5.11 10^6/uL (3.85-5.65) 04/07/25 23:46 Hgb 14.90 g/dL (11.27-16.99) 04/07/25 23:46 Hct 47.0 % (37-53) 04/07/25 23:46 MCV 92.0 fl (82-101) 04/07/25 23:46 MCH 29.2 pg (27-33) 04/07/25 23:46 MCHC 31.7 g/dL (30-55) 04/07/25 23:46 RDW 13.7 % (12.1-15.1) 04/07/25 23:46 Plt Count 147 10^3/cmm (157-399) L 04/07/25 23:46 MPV 9.7 fL (7.4-10.4) 04/07/25 23:46 Neut % (Auto) 60.0 % 04/07/25 23:46 Lymph % (Auto) 27.5 % 04/07/25 23:46 [place] % (Auto) 8.8 % 04/07/25 23:46 Eos % (Auto) 2.3 % 04/07/25 23:46 Baso % (Auto) 0.9 % 04/07/25 23:46 Neut # (Auto) 3.98 10^3/uL (1.8-7.7) 04/07/25 23:46 Lymph # (Auto) 1.8 10^3/uL (0.8-4.8) 04/07/25 23:46 [place] # (Auto) 0.6 10^3/uL (0.2-0.9) 04/07/25 23:46 Eos # (Auto) 0.2 10^3/uL (0.0-0.8) 04/07/25 23:46 Baso # (Auto) 0.1 10^3/uL (0.0-0.1) 04/07/25 23:46 Nucleated RBC % (auto) 0 % 04/07/25 23:46 Nucleated RBCs # 0.0 /100WBC 04/07/25 23:46 PT 12.30 SECONDS (12.1-14.9) 04/07/25 23:46 INR 0.85 (0.8-1.2) 04/07/25 23:46 APTT 26.8 SECONDS (23.9-36.7) 04/07/25 23:46 Sodium 144 mmol/L (136-145) 04/07/25 23:46 Potassium 4.0 mmol/L (3.5-5.1) 04/07/25 23:46 Chloride 104 mmol/L (98-107) 04/07/25 23:46 Carbon Dioxide 29 mmol/L (22-29) 04/07/25 23:46 Anion Gap 15.0 (5-19) 04/07/25 23:46 BUN 18 mg/dL (8-23) 04/07/25 23:46 Creatinine 1.1 mg/dL (0.7-1.2) 04/07/25 23:46 GFR Calculation 67.6 mL/min (90-130) L 04/07/25 23:46 Glucose 153 mg/dL (65-115) H 04/07/25 23:46 Calculated Osmolality 303 mOsm/kg (285-295) H 04/07/25 23:46 Calcium 8.4 mg/dL (8.5-10.5) L 04/07/25 23:46 Total Bilirubin 0.3 mg/dL (0.15-1.2) 04/07/25 23:46 AST 31 U/L (0-40) 04/07/25 23:46 ALT 32 U/L (0-41) 04/07/25 23:46 Alkaline Phosphatase 113 U/L (40-130) 04/07/25 23:46 Troponin T Baseline 15 ng/L (0-15) 04/07/25 23:46 NT-Pro-B Natriuret Pep 119 pg/mL (0-125) 04/07/25 23:46 Total Protein 7.2 g/dL (6.6-8.7) 04/07/25 23:46 Albumin 3.9 g/dL (3.5-5.2) 04/07/25 23:46 Globulin 3.3 g/dL (1.3-4.6) 04/07/25 23:46 All radiology interpretation(s) finalized by discharge Discharge Plan Discharge Patient Disposition: Placed in Observation Clinical Impression: Atypical chest pain Coding Level of Care Code ED Sexual Assault Counselor for Bro Tapia
[2025-04-07 23:55] LABS: Hematocrit 47.0 % (37-53); Hemoglobin 14.90 g/dL (11.27-16.99); Mean Corpuscular HGB Conc 31.7 g/dL (30-55); Mean Corpuscular Hemoglobin 29.2 pg (27-33); Mean Corpuscular Volume 92.0 fl (82-101); Nucleated Red Blood Cells % 0 %; Platelet Count 147 10^3/cmm (157-399); Red Blood Count 5.11 10^6/uL (3.85-5.65); White Blood Count 6.62 10^3/uL (3.29-11.43)
[2025-04-08] VITALS (12 sets, daily range): BP systolic 138–179; BP diastolic 61–82; PULSE 62–88; RESP 16–26; TEMP 36.6–36.7; O2SAT 92–97; BMI 39.5
--- NOTE | 2025-04-08 | ECG_ITS ---
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 Interpretive Statements Procedure: Dobutamine was infused for pharmacologic stress. Vital signs and ECG findings: Baseline EKG???normal sinus rhythm, mild intraventricular conduction delay, nonspecific T wave abnormality, possible old anteroseptal infarction Stress EKG???no ST-T wave changes from baseline Baseline blood pressure was 136/97 with a heart rate of 76. at peak stress the patient's blood pressure was 127/55 with a heart rate of 135 bpm which was 87% of maximal predicted heart rate. In recovery the blood pressure was 138/62 with a heart rate of 88 bpm. Conclusion: 1. Normal EKG response to Lexiscan infusion 2. No Lexiscan induced chest pain or cardiac arrhythmia. 3. Normal blood pressure and heart rate response. Electronically Signed On 04-08-2025 14:51:19 CDT by Vladimir Cleveland M.D. [email or web address] [id number]
[2025-04-08 00:22] LABS: Slide Review Slide Review Perform
--- NOTE | 2025-04-08 00:27 | ECG_ITS ---
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 Measurements Intervals [place] Rate: 70 P: 57 [place]: 199 QRS: -46 QRSD: 109 T: -6 QT: 365 QTc: 394 Interpretive Statements SINUS RHYTHM LEFT AXIS DEVIATION [QRS AXIS < -30] PATTERN CONSISTENT WITH PULMONARY DISEASE SEPTAL MYOCARDIAL INFARCTION , PROBABLY OLD [40+ ms Q WAVE IN V1/V2] Compared to ECG 12/04/2022 11:44:06 No significant changes Electronically Signed On 04-08-2025 22:51:49 CDT by Harsha Egan M.D. [id number] [id number]
[2025-04-08 00:38] LABS: Alanine Aminotransferase 32 U/L (0-41); Albumin Level 3.9 g/dL (3.5-5.2); Alkaline Phosphatase 113 U/L (40-130); Blood Urea Nitrogen 18 mg/dL (8-23); Calcium 8.4 mg/dL (8.5-10.5); Carbon Dioxide 29 mmol/L (22-29); Chloride 104 mmol/L (98-107); Creatinine Clr Calc Pharmacy 74.4687; Globulin 3.3 g/dL (1.3-4.6); Glucose 153 mg/dL (65-115); NT Pro B Type Natriuretic Pept 119 pg/mL (0-125); Osmolality Calculated 303 mOsm/kg (285-295); Sodium 144 mmol/L (136-145); Total Protein 7.2 g/dL (6.6-8.7)
[2025-04-08 00:57] LABS: Anion Gap 15.0 (5-19); Aspartate Amino Transferase 31 U/L (0-40); Potassium 4.0 mmol/L (3.5-5.1)
[2025-04-08 00:58] LABS: INR 0.85 (0.8-1.2); Prothrombin Time 12.30 SECONDS (12.1-14.9)
[2025-04-08 00:59] LABS: Partial Thromboplastin Time 26.8 SECONDS (23.9-36.7)
[2025-04-08 01:04] LABS: Troponin(5th) Baseline 15 ng/L (0-15)
--- NOTE | 2025-04-08 02:14 | PM.HP ---
Providers/Chief Complaint Admitting Physician: JUAREZ PHIPPS--DO--- patient seen and evaluated after 12 midnight Primary Care Provider: Kindra Khan DO Chief Complaint: CP SOB tingling in left hand headache History of Present Illness Stephen Garrett is a 64 year old male with medical history significant for coronary artery disease with stent placement in the past. Patient presented because of chest pain that has been ongoing for the past 3 days on the left precordial radiating to the left arm and causing the fingers to be numb. Patient did not have any feelings on the left fingers of the hand of the left upper extremity.. Patient past medical history significant for COPD, diabetes type 2, myocardial infarction and had been on Plavix for coronary artery disease The ED consulted Dr. Davis who was on-call since we are on STEMI divert, Dr. Mcdonald the cardiology accepted that patient be admitted and asked that patient be placed on Nitropaste therapeutic Lovenox and that he will have the patient go to stress test. Lexiscan stress test has been scheduled. Patient n.p.o. and had been admitted under observation for chest pain rule out. Initial troponin was at 15.95 with a negative delta at 0.94 Review of Systems Narrative: System review upon 10 organ review were significant for cardiovascular with chest pain at presentation. Otherwise unremarkable. Medications/Allergies Home Medications ?Medication ?Instructions ?Recorded ?Confirmed ?Last Taken ?Type metformin 1,000 mg tablet 1,000 mg PO BID 09/18/20 02/09/24 12/04/22 History omega-3 fatty acids 1,000 mg 1,000 mg PO DAILY 09/18/20 02/09/24 12/04/22 History capsule (Fish Oil Concentrate) omeprazole 20 mg capsule,delayed 20 mg PO DAILY 09/18/20 02/09/24 12/04/22 History release pregabalin 150 mg capsule (Lyrica) 150 mg PO BID 09/18/20 02/09/24 12/04/22 History nitroglycerin 0.4 mg sublingual 0.4 mg sublingual Q5M PRN Chest 10/03/20 02/09/24 Unknown History tablet Pain albuterol sulfate 90 mcg/actuation 2 inh inhalation Q6H PRN shortness 05/03/21 02/09/24 Unknown Rx aerosol inhaler of breath or wheezing #8 grams metoprolol tartrate 50 mg tablet 50 mg PO BID #180 tabs 08/13/21 02/09/24 12/04/22 Rx tiotropium bromide 2.5 2 puff inhalation DAILY #4 grams 08/13/21 02/09/24 12/04/22 Rx mcg/actuation mist for inhalation (Spiriva Respimat) losartan 50 mg tablet 50 mg PO DAILY #90 tabs 08/28/21 02/09/24 12/04/22 Rx clopidogrel 75 mg tablet 75 mg PO DAILY #30 tabs 10/08/21 02/09/24 12/04/22 Rx isosorbide mononitrate 30 mg 30 mg PO DAILY #30 tabs 10/08/21 02/09/24 12/04/22 Rx tablet,extended release 24 hr potassium chloride 20 mEq 20 meq PO DAILY #30 tabs 01/25/22 02/09/24 12/04/22 Rx tablet,extended release(part/cryst) (Klor-Con M) furosemide 40 mg tablet 40 mg PO BID #60 tabs 03/08/22 02/09/24 12/04/22 Rx hydrocodone 5 mg-acetaminophen 325 1 - 2 tab PO BEDTIME PRN Pain 12/04/22 02/09/24 Unknown History mg tablet losartan 100 mg tablet 100 mg PO QPM 12/04/22 02/09/24 12/03/22 History metolazone 2.5 mg tablet 2.5 mg PO DAILY PRN Edema 12/04/22 02/09/24 Unknown History pravastatin 40 mg tablet 40 mg PO DAILY 12/04/22 02/09/24 12/03/22 History Allergies Allergy/AdvReac Type Severity Reaction Status Date / Time No Known Allergies Allergy Verified 02/09/24 12:12 PFSH Acute PFSH: Medical History COPD (chronic obstructive pulmonary disease) CAD (coronary artery disease) Surgical History Stented coronary artery H/O umbilical hernia repair Social History Smoking and tobacco/nicotine status: current every day tobacco/nicotine user cigarettes Packs smoked per day: 0.5 Years cigarettes smoked: 40 [ Other cigarette details: 3-4ppd 7 years ago] Quit status (tobacco/nicotine): considering quitting Second hand smoke exposure: No Alcohol intake: former Substance/Drug Use: never Lives independently: Yes Household members: spouse Housing: House Marital status: service: No Current occupational status: employed 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 Patient is apprehensive HEENT normocephalic/atraumatic neck neck is supple cardiovascular heart rate is regular lungs are pretty much clear abdomen is soft nontender nondistended unremarkable extremities are intact no edema has good pulses neurology has no focality lab studies lab studies reviewed and noted. Data 04/07/25 23:46 04/07/25 23:46 A&P Assessment and plan 1. Atypical chest pain: 2. Trigger finger, left middle finger: 3. CAD (coronary artery disease): 4. COPD (chronic obstructive pulmonary disease): 5. CHF (congestive heart failure): 6. Newly diagnosed diabetes: Plan: #1 Chest pain -Admit to [facility] with telemetry -Patient received antiplatelets - Statin - Nitro in form of Nitropaste as directed by cardiology - Order echocardiogram follow-through with result - Patient n.p.o. for stress test this morning - All things go well patient is observation stay for 23 hours stay to rule out for an WA and possible workup for New CAD #2 History of chronic medical problem significant for CHF/COPD/coronary artery disease -Continue patient on home medication for chronic medical problems #3 GI and DVT prophylaxis in place PDMP PDMP Reviewed: Last Reviewed 04/08/25 05:15 by Juarez Phipps MD Attestations Medical Necessity Statement*: Chest pain rule out WA patient for stress test and meets criteria for observation for a 23-hour stay for workup. Coding Level of Care Code 47261 Diagnoses Atypical chest pain R07.89 Trigger finger, left middle finger M65.332 CAD (coronary artery disease) I25.10 COPD (chronic obstructive pulmonary disease) J44.9 CHF (congestive heart failure) I50.9 Newly diagnosed diabetes E11.9 Time Spent (min) 60
[2025-04-08 02:43] LABS: Troponin 5 2HR 15.94 ng/L (0-15); Troponin 5 2HR Delta 0.94 ABS# (0-10)
[2025-04-08] MEDS: nitroglycerin 1 gm/inch oint Pkt 1 INCH TOPICAL (02:55)
--- NOTE | 2025-04-08 03:23 | PC.NURSE ---
Pt is unable to tolerate the 1 of nitro paste. Pt's nitro paste was removed at this time.
--- NOTE | 2025-04-08 04:17 | PC.NURSE ---
This nurse received report from Lady BROWN @ [id number].
--- NOTE | 2025-04-08 05:11 | ECG_ITS ---
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 Measurements Intervals [place] Rate: 73 P: 70 IA: 189 QRS: -37 QRSD: 108 T: 47 QT: 388 QTc: 428 Interpretive Statements SINUS RHYTHM LEFT AXIS DEVIATION [QRS AXIS < -30] LOW QRS VOLTAGE IN PRECORDIAL LEADS [QRS DEFLECTION < 1.0 mV IN CHEST LEADS] SEPTAL MYOCARDIAL INFARCTION , PROBABLY OLD [40+ ms Q WAVE IN V1/V2] Compared to ECG 04/08/2025 00:27:26 Low QRS voltage now present Myocardial infarct finding still present Electronically Signed On 04-08-2025 22:51:36 CDT by Harsha Egan M.D. [email or web address]
[2025-04-08] MEDS: HYDROcodone-acetaminophen 7.5-325 mg Tablet 1 TAB PO (05:25)
[2025-04-08 05:47] LABS: Hematocrit 47.2 % (37-53); Hemoglobin 15.10 g/dL (11.27-16.99); Mean Corpuscular HGB Conc 32.0 g/dL (30-55); Mean Corpuscular Hemoglobin 29.7 pg (27-33); Mean Corpuscular Volume 92.7 fl (82-101); Nucleated Red Blood Cells % 0 %; Platelet Count 141 10^3/cmm (157-399); Red Blood Count 5.09 10^6/uL (3.85-5.65); White Blood Count 6.90 10^3/uL (3.29-11.43)
[2025-04-08 06:05] LABS: Troponin 5 6HR 17.35 ng/L (0-15); Troponin 5 6HR Delta 2.35 ng/L (0-12)
[2025-04-08 06:10] LABS: Alanine Aminotransferase 30 U/L (0-41); Albumin Level 3.7 g/dL (3.5-5.2); Alkaline Phosphatase 106 U/L (40-130); Aspartate Amino Transferase 27 U/L (0-40); Blood Urea Nitrogen 18 mg/dL (8-23); Calcium 8.5 mg/dL (8.5-10.5); Carbon Dioxide 27 mmol/L (22-29); Chloride 102 mmol/L (98-107); Creatinine Clr Calc Pharmacy 91.0173; Globulin 3.7 g/dL (1.3-4.6); Glucose 134 mg/dL (65-115); Magnesium 1.3 mg/dL (1.7-2.3); Osmolality Calculated 296 mOsm/kg (285-295); Sodium 141 mmol/L (136-145); Total Protein 7.4 g/dL (6.6-8.7)
[2025-04-08 06:11] LABS: Anion Gap 15.9 (5-19); Potassium 3.9 mmol/L (3.5-5.1)
--- NOTE | 2025-04-08 07:24 | USCV_ITS ---
Stephen Garrett Age: 64 Gender: M : 1960 Exam Date: 04/08/2025 09:55 Ordering Phys: Kaylin Phipps MD Technologist: Exam Location: [facility] [place] Indication: cp chf BP: 130 / 80 HR: 67 Rhythm: Sinus Technical Quality: Adequate MEASUREMENTS (Male / Female) Normal Values 2D ECHO LV Diastolic Diameter PLAX 5.1 cm 4.2 - 5.9 / 3.9 - 5.3 cm IVS Diastolic Thickness 1.2 cm 0.6 - 1.0 / 0.6 - 0.9 cm IVS Systolic Thickness 1.8 cm LVPW Diastolic Thickness 1.4 cm 0.6 - 1.0 / 0.6 - 0.9 cm LVPW Systolic Thickness 1.7 cm LVOT Diameter 2.0 cm LV Ejection Fraction 2D Teich 69.3 % LV Ejection Fraction MOD 4C 59.1 % LV Ejection Fraction MOD 2C 62.6 % LV Ejection Fraction 2C AL 64.1 % LA Diameter 3.1 cm RA Systolic Volume 4C AL 42.7 ml RA Systolic Volume 4C MOD 39.3 ml Aorta at Sinotubular Diameter 3.2 cm IVC Diameter 2.0 cm M-MODE LA Ao Ratio MM 1.5 AV Cusp Separation MM 2.0 cm DOPPLER AV Peak Velocity 173.0 cm/s LVOT Peak Velocity 92.0 cm/s AV Area Cont Eq vti 2.3 cm squared AV Area Cont Eq pk 1.7 cm squared MV Area PHT 3.3 cm squared Mitral E to A Ratio 1.1 PV Peak Velocity 122.5 cm/s FINDINGS Left Ventricle Normal ventricular size and systolic function. Ejection fraction 59%. Grade 2 left ventricular diastolic dysfunction. Mild concentric left ventricular hypertrophy. Right Ventricle Normal right ventricular size and systolic function. RVSP could not be calculated due to incomplete tricuspid regurgitation velocity profile. Right Atrium Normal right atrial size. Left Atrium Normal left atrial size. Mitral Valve Structurally normal mitral valve. No mitral valve stenosis. Mild mitral valve regurgitation. Aortic Valve Aortic valve not well visualized. No aortic valve stenosis. Mild aortic valve calcification. Mild aortic valve regurgitation. Tricuspid Valve No tricuspid valve regurgitation. Pulmonic Valve Trace pulmonary valve regurgitation. Pericardium No pericardial effusion. Aorta Normal aorta size at the level of the sinus of valsalva. IVC Normal inferior vena cava. CONCLUSIONS 1. Normal right ventricular and left ventricular cavity sizes and systolic function. LV EF 59%. 2. Mild mitral valve regurgitation 3. Mild aortic valve sclerosis without stenosis and mild aortic valve regurgitation 4. Grade 2 left ventricular diastolic dysfunction. Vladimir Cleveland MD, FACC (Electronically Signed) Final Date: 08 April 2025 15:22 S
[2025-04-08] MEDS: magnesium sulfate premix 4 GM/100 ML PREMIX IV (09:07)
--- NOTE | 2025-04-08 10:12 | P.CONIM_ITS ---
<Statement entered by Juanita Mcdonald MD - 04/08/25 18:58> Patient was evaluated and cared for in conjunction with an advanced practice practitioner. I personally examined the patient and reviewed the chart and all pertinent data including imaging, telemetry, and laboratory results. I discussed the patient in detail with the advanced practice practitioner. Please see their note for complete H&P testing result and agreed upon plan of care for the patient. Denies any chest Stress echo is negative for ischemia GENERAL: Patient is alert, awake and oriented x3. HEART: Regular S1 and S2. No murmur, rub or gallop. LUNGS: Clear to auscultate bilaterally. CENTRAL NERVOUS SYSTEM: Grossly nonfocal. EXTREMITIES: Lower extremities with out edema bilaterally. Chest pain Coronary artery hypertension Hyperlipidemia Stress test turns out to be negative rule out for acute coronary syndrome Will optimize medication including adding isosorbide mononitrate. Advised patient to follow-up with pulmonary for shortness of breath which could be reactive airway disease however advised in case of worsening of symptoms patient can return back to ER. We will follow-up patient in the cardiology clinic Providers/Reason For Consult 2 Consulting Physician/Specialty*: Dr Rayna Mcdonald, interventional cardiology Reason for Consult*: Chest pain Requesting Physician: Dr. Phipps Attending Physician: Torie Hall MD Primary Care Provider: Kindra Khan DO History of Present Illness History of Present Illness Stephen Garrett is a 64 year old male with past medical history of CAD (last cath 2016: Patent LAD stent, 50% stenosis distal to that stent, tandem RCA lesions 20 to 30% stenosis, distal RCA significant stenosis stented at that time), tobacco use, diabetes, COPD. He presented to the emergency room last night due to shortness of breath that had been worsening over the last few days, severe with exertion as well as chest pain located across the anterior portion of his chest both sides. When he went to see his PCP recently, she noted high blood pressure which is unusual for him. He has not had any weight gain, lower extremity edema, orthopnea, PND, exertional diaphoresis, nausea, vomiting. Yesterday he had chest pain all day, the 3 to 4 days prior to that it was intermittent with exertion. Most recent echocardiogram in 2020 showed normal LVEF. Troponin series: 15-> 15.9-> 17. EKG shows sinus rhythm, left axis deviation, moderate IVCD, no ST elevation or depression. Review of Systems 2 Const: Denies: fever(s), chills, change in weight, fatigue or diaphoresis Eyes: Denies: change in vision ENMT: Denies: epistaxis Card: Reports: chest pain and dyspnea on exertion; Denies: palpitations, irregular heart rhythm, edema, syncope, pre-syncope, orthopnea or leg pain with exertion Resp: Denies: dyspnea, productive cough or wheezing GI: Denies: nausea, vomiting, hematemesis, hematochezia or melena : Denies: hematuria Musc: Denies: extremity swelling Gio/Lymph: Denies: easy bruising or easy bleeding Medications/Allergies Home Medications ?Medication ?Instructions ?Recorded ?Confirmed ?Last Taken ?Type metformin 1,000 mg tablet 1,000 mg PO BID 09/18/2004/07/25 History omeprazole 20 mg capsule,delayed 20 mg PO DAILY 04/08/25 04/07/25 History release nitroglycerin 0.4 mg sublingual 0.4 mg sublingual Q5M PRN Chest 10/03/20 04/08/25 Unknown History tablet Pain albuterol sulfate 90 mcg/actuation 2 inh inhalation Q6 H PRN shortness 05/03/21 04/08/25 Unknown Rx aerosol inhaler of breath or wheezing #8 gra ms metoprolol tartrate 50 mg tablet 50 mg PO BID #180 tab s 08/13/21 04/08/25 04/07/25 Rx tiotropium bromide 2.5 2 puff inhalation DAILY #4 g allan 08/13/21 04/08/25 04/07/25 Rx mcg/actuation mist for inhalation (Spiriva Respimat) losartan 50 mg tablet 50 mg PO DAILY #90 tabs 08/1104/08/25 04/07/25 Rx clopidogrel 75 mg tablet 75 mg PO DAILY #30 tabs 09/1204/08/25 04/07/25 Rx isosorbide mononitrate 30 mg 30 mg PO DAILY #30 tabs 0 10/08/21 04/08/25 04/07/25 Rx tablet,extended release 24 hr potassium chloride 20 mEq 20 meq PO DAILY #30 tabs 04/08/25 04/07/25 Rx tablet,extended release(part/cryst) (Klor-Con M) furosemide 40 mg tablet 40 mg PO BID #60 tabs 04/08/25 04/07/25 Rx losartan 100 mg tablet 100 mg PO QPM 12/04/2204/0804/07/25 History metolazone 2.5 mg tablet 2.5 mg PO DAILY PRN Edema 04/08/25 Unknown History pravastatin 40 mg tablet 40 mg PO DAILY 12/04/22 08/2 05/0504/07/25 History azelastine 137 mcg (0.1 %) nasal 2 spray intranasal BI D 04/08/25 04/08/25 04/07/25 History spray fluticasone propionate 50 2 spray intranasal DAILY 04/08/25 04/07/25 History mcg/actuation nasal spray,suspension hydrocodone 7.5 mg-acetaminophen 1 tab PO TID PRN Pain 04/08/25 04/08/25 Unknown History 325 mg tablet omega-3s 300 [id number]-[id number]-other 1 cap PO DAILY 04/08/25 04/08/25 04/07/25 History [id number] oil 1,000 mg capsule (Novice-3 Fish Oil) pregabalin 200 mg capsule 200 mg PO BID 04/08/2504/0804/07/25 History Allergies Allergy/AdvReac Type Severity Reaction Status Date / Time No Known Allergies Allergy Verified 02/09/24 12:12 Current Medications Generic Name Dose Route Start Last Admin Trade Name Asya PRN Reason Stop Dose Admin Aspirin 325 mg 04/08/25 09:00 04/08/25 08:25 Aspirin 325 Mg Ec Tablet PO Not Given DAILY KATIE Enoxaparin Sodium 100 mg 04/08/25 05:30 04/08/25 06:02 Enoxaparin 100 Mg/Ml Syringe SUBCUT 100 mg Q12H KATIE Administration Sodium Chloride 1,000 mls @ 75 mls/hr 04/08/25 02:17 04/08/25 03:28 Sodium Chloride 0.9% IV 75 mls/hr .[id number] KATIE Administration Nitroglycerin 1 inch 04/08/25 05:30 04/08/25 06:07 Nitroglycerin 1 Gm/Inch Oint Pkt TOPICAL Not Given Q6H KATIE PFSH Acute 2 PFSH: Medical History COPD (chronic obstructive pulmonary disease) CAD (coronary artery disease) Surgical History Stented coronary artery H/O umbilical hernia repair Social History Smoking and tobacco/nicotine status: current every day tobacco/nicotine user cigarettes Packs smoked per day: 0.5 Years cigarettes smoked: 40 [ Other cigarette details: 3-4ppd 7 years ago] Quit status (tobacco/nicotine): considering quitting Second hand smoke exposure: No Alcohol intake: former Substance/Drug Use: never Lives independently: Yes Household members: spouse Housing: House Marital status: service: No Current occupational status: employed 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 Pets and animals: No Do you think of yourself as: Straight/Heterosexual Current gender identity: Male Vitals/I&O/Wt Last Vital Signs Temp 98.1 F 04/07/25 18:57 Pulse 70 04/08/25 08:05 Resp 26 H 04/08/25 03:10 BP 138/80 04/08/25 08:05 Pulse Ox 97 04/08/25 08:05 O2 Del Method Room Air 04/08/25 09:13 04/07/25 04/08/25 04/08/25 22:59 06:59 14:59 Output Total 125 / 125 Balance -125 / -125 Weight last 48 hrs Weight 230 lb 9.6 oz Weight 234 lb Physical Exam 2 Const: COMMON NORMALS: no acute distress and patient oriented x3 GENERAL APPEARANCE: cooperative and comfortable ORIENTATION/CONSCIOUSNESS: Yes awake, Yes oriented to person, Yes oriented to place and Yes oriented to time Chest: COMMONS NORMALS: normal inspection of the chest and normal palpation of entire chest wall CHEST: Yes Symmetrical chest wall rise Resp: COMMON NORMALS: normal respiratory effort, No retractions, No use of accessory muscles and clear to auscultation bilaterally EFFORT & INSPECTION: Yes symmetric chest movement AUSCULTATION: clear to auscultation bilaterally Cardio: COMMON NORMALS: regular rate, regular rhythm, S1 normal heart sound present, S2 normal heart sound present, No gallops present (Cardio), No clicks present (Cardio), No murmurs present (Cardio) and No rub (Cardio) RATE: r egular rate RHYTHM: regular rhythm HEART SOUNDS: S1 normal heart sound present and S2 normal heart sound present PERIPHERAL PULSES: radial pulses present Extremity: COMMON NORMALS: no pedal edema Neuro: COMMON NORMALS: patient oriented x3 and moves all extremities S ENSORIUM/ORIENTATION: Yes oriented to person, Yes oriented to place and Yes oriented to time Data 04/08/25 05:35 04/08/25 05:35 A&P Assessment and plan 1. Chest pain: 2. CAD (coronary artery disease): 3. HTN (hypertension): 4. Smoker: 5. Diabetes mellitus: 6. COPD (chronic obstructive pulmonary disease): Plan: There was an error with ordering of the stress test that was planned. Since we do not have any doses for sestamibi, instead of Lexiscan stress test we will perform dobutamine stress echo for further evaluation. He is currently chest pain-free. He is on therapeutic Lovenox which he should continue, along with Nitro-Bid and aspirin. Further plan will be devised after the results of the dobuatmine stress echo. PDMP PDMP Reviewed: Not Reviewed Coding Level of Care Code Acute Code for [facility] Fwd Diagnoses Chest pain R07.9 CAD (coronary artery disease) I25.10 HTN (hypertension) I10 Smoker F17.200 Diabetes mellitus E11.9 COPD (chronic obstructive pulmonary disease) J44.9
--- NOTE | 2025-04-08 11:09 | USCV_ITS ---
Stress Echo Stephen Garrett Age: 64 Gender: M : 1960 Exam Date: 04/08/2025 11:31 Ordering Phys: Juanita Mcdonald MD Technologist: Fercho Potts Exam Location: [facility] [place] Indication: cp Rhythm: Sinus Patient History: Cardiac Medications: Beta ari Medications in past 24 hours: Contrast: Stress Results Protocol: Олег Total dose(mL): Exercise Duration (min:sec): 9:47 METS: 1 Resting HR: 68 Resting BP: 145 / 87 Peak HR: 139 Peak BP: 163 / 97 Max Predicted HR: 157 89 % Max Predicted HR Target HR: 133 Double Product: 46840 Stress Summary: The patient's target heart rate was achieved BP Response: Normal Reason for Termination: Reached target heart rate or work-load Cardiac Symptoms: None ECG Analysis Resting ECG: Stress ECG: Arrhythmia: MEASUREMENTS (Male/Female) Normal Values FINDINGS Baseline: Normal left ventricular ejection fraction 60%, no wall motion abnormality, normal left ventricular size. At low peak dobutamine dose: Good cavity recommendation. No wall motion abnormality Recovery: No significant new wall motion abnormality CONCLUSIONS Echocardiographic portion of the stress echo was normal. EKG segment will be reported separately Juanita Mcdonald MD (Electronically Signed) Final Date: 08 April 2025 14:19 S
[2025-04-08] MEDS: DOBUTtamine 200 MG in sodium chloride 0.9% 34 ML 16 MG IV (11:23)
[2025-04-08] MEDS: morphine 4 mg/mL SDV 1 mL IVP (11:56)
--- NOTE | 2025-04-08 14:00 | PM.MISC ---
Miscellaneous Note Note: Seen this morning prior to stress test. He is resting comfortably in bed. Denies any chest pain at this time. Cardiology consult appreciated. Will await for stress test results to decide on further management and care. Will restart patient's home medications
--- NOTE | 2025-04-08 15:32 | PM.DCS ---
Discharge Providers Date of Admission: 04/08/25 02:20 Date of Discharge: April 08, 2025 Attending Provider at Admission: Kaylin Phipps MD Attending Provider at Discharge: Torie Hall MD Primary Care Provider: Kindra Khan DO Diagnoses at Discharge Discharge Diagnosis 1. Chest pain: 2. 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 Essential hypertension: 4. Smoker: 5. Diabetes mellitus: 6. Chronic obstructive pulmonary disease, unspecified COPD type: Reason for Visit Reason for Visit: CP SOB tingling in left hand headache Hospital Course Hospital Course Presented to the hospital with chest pain underwent stress testing was cleared by cardiology for discharge as stress test was negative. Patient discharged home in stable condition on his home medications as directed by cardiology. Patient to follow-up with cardiology as an outpatient. Physical Exam Narrative: General: Alert oriented x3, patient seen sitting in bed appearing comfortable at this time HEENT: Normocephalic, atraumatic, EOMI, Cardio: Regular rate rhythm, normal S1-S2, Respiratory: Good bilateral air entry, no wheezes no rhonchi appreciated GI: Abdomen soft, nontender, bowel sounds + Extremities: No edema bilateral lower extremities Discharge Data Studies Completed and Pending Completed Studies During Hospitalization Category Date Time Status Cardiac Stress Test Request Routine Exams 04/08/25 10:03 Completed XR chest 1V portable [id number] Stat Exams 04/07/25 23:11 Completed CV. echo complete* [id number] Routine Ultrasound 04/08/25 07:24 Com[place] [id number] Routine Ultrasound 04/08/25 11:09 Completed Pending at discharge Category Date Time Status Basic Metabolic Panel AM LABS Lab 04/09/25 04:00 Ordered Complete Blood Count w/Auto AM LABS Lab 04/09/25 04:00 Ordered Magnesium AM LABS Lab 04/09/25 04:00 Ordered Radiology Impressions Chest X-Ray 04/07/25 23:11 IMPRESSION: No acute pulmonary process. Laboratory Results WBC 6.90 10^3/uL (3.29-11.43) 04/08/25 05:35 RBC 5.09 10^6/uL (3.85-5.65) 04/08/25 05:35 Hgb 15.10 g/dL (11.27-16.99) 04/08/25 05:35 Hct 47.2 % (37-53) 04/08/25 05:35 MCV 92.7 fl (82-101) 04/08/25 05:35 MCH 29.7 pg (27-33) 04/08/25 05:35 MCHC 32.0 g/dL (30-55) 04/08/25 05:35 RDW 13.7 % (12.1-15.1) 04/08/25 05:35 Plt Count 141 10^3/cmm (157-399) L 04/08/25 05:35 MPV 9.8 fL (7.4-10.4) 04/08/25 05:35 Neut % (Auto) 66.6 % 04/08/25 05:35 Lymph % (Auto) 22.2 % 04/08/25 05:35 [place] % (Auto) 8.1 % 04/08/25 05:35 Eos % (Auto) 2.0 % 04/08/25 05:35 Baso % (Auto) 0.7 % 04/08/25 05:35 Neut # (Auto) 4.59 10^3/uL (1.8-7.7) 04/08/25 05:35 Lymph # (Auto) 1.5 10^3/uL (0.8-4.8) 04/08/25 05:35 [place] # (Auto) 0.6 10^3/uL (0.2-0.9) 04/08/25 05:35 Eos # (Auto) 0.1 10^3/uL (0.0-0.8) 04/08/25 05:35 Baso # (Auto) 0.1 10^3/uL (0.0-0.1) 04/08/25 05:35 Nucleated RBC % (auto) 0 % 04/08/25 05:35 Nucleated RBCs # 0.0 /100WBC 04/08/25 05:35 PT 12.30 SECONDS (12.1-14.9) 04/07/25 23:46 INR 0.85 (0.8-1.2) 04/07/25 23:46 APTT 26.8 SECONDS (23.9-36.7) 04/07/25 23:46 Sodium 141 mmol/L (136-145) 04/08/25 05:35 Potassium 3.9 mmol/L (3.5-5.1) 04/08/25 05:35 Chloride 102 mmol/L (98-107) 04/08/25 05:35 Carbon Dioxide 27 mmol/L (22-29) 04/08/25 05:35 Anion Gap 15.9 (5-19) 04/08/25 05:35 BUN 18 mg/dL (8-23) 04/08/25 05:35 Creatinine 0.9 mg/dL (0.7-1.2) 04/08/25 05:35 GFR Calculation 85.2 mL/min (90-130) L 04/08/25 05:35 Glucose 134 mg/dL (65-115) H 04/08/25 05:35 Calculated Osmolality 296 mOsm/kg (285-295) H 04/08/25 05:35 Calcium 8.5 mg/dL (8.5-10.5) 04/08/25 05:35 Phosphorus 2.5 mg/dL (2.5-4.5) 04/08/25 05:35 Magnesium 1.3 mg/dL (1.7-2.3) L 04/08/25 05:35 Total Bilirubin 0.3 mg/dL (0.15-1.2) 04/08/25 05:35 AST 27 U/L (0-40) 04/08/25 05:35 ALT 30 U/L (0-41) 04/08/25 05:35 Alkaline Phosphatase 106 U/L (40-130) 04/08/25 05:35 Troponin T Baseline 15 ng/L (0-15) 04/07/25 23:46 Troponin T 120 Minute 15.94 ng/L (0-15) H 04/08/25 02:15 Delta Troponin T 0.94 ABS# (0-10) 04/08/25 02:15 Troponin T Hi Sens 6Hr 17.35 ng/L (0-15) H 04/08/25 05:35 Troponin T Hi Sens 6Hr Delta 2.35 ng/L (0-12) 04/08/25 05:35 NT-Pro-B Natriuret Pep 119 pg/mL (0-125) 04/07/25 23:46 Total Protein 7.4 g/dL (6.6-8.7) 04/08/25 05:35 Albumin 3.7 g/dL (3.5-5.2) 04/08/25 05:35 Globulin 3.7 g/dL (1.3-4.6) 04/08/25 05:35 Vitals Last Vital Signs Temp 98 F 04/08/25 15:16 Pulse 80 04/08/25 15:16 Resp 16 04/08/25 15:16 BP 162/78 04/08/25 15:16 Pulse Ox 92 04/08/25 15:16 O2 Del Method Room Air 04/08/25 09:13 Discharge Plan Discharge Patient Disposition: Home Condition: Stable Prescriptions: New aspirin 81 mg capsule 81 mg PO DAILY Qty: 30 0RF Continued metformin 1,000 mg tablet 1,000 mg PO BID omeprazole 20 mg capsule,delayed release(DR/EC) 20 mg PO DAILY nitroglycerin 0.4 mg tablet, sublingual 0.4 mg sublingual Q5M PRN (Reason: Chest Pain) Rx Instructions: do not exceed 3 doses per episode Spiriva Respimat 2.5 mcg/actuation mist 2 puff inhalation DAILY Qty: 4 0RF metoprolol tartrate 50 mg tablet 50 mg PO BID Qty: 180 3RF losartan 50 mg tablet 50 mg PO DAILY Qty: 90 3RF Rx Instructions: along with 100mg to= 150mg total isosorbide mononitrate 30 mg tablet extended release 24 hr 30 mg PO DAILY Qty: 30 0RF clopidogrel 75 mg tablet 75 mg PO DAILY Qty: 30 0RF potassium chloride [Klor-Con M20] 20 mEq tablet,ER particles/crystals 20 meq PO DAILY Qty: 30 0RF furosemide 40 mg tablet 40 mg PO BID Qty: 60 0RF albuterol sulfate 90 mcg/actuation HFA aerosol inhaler 2 inh INHALATION Q6H PRN (Reason: shortness of breath or wheezing) Qty: 8 0RF hydrocodone-acetaminophen 7.5-325 mg tablet 1 tab PO TID PRN (Reason: Pain) azelastine 137 mcg (0.1 %) spray,non-aerosol 2 spray INTRANASAL BID fluticasone propionate 50 mcg/actuation spray,suspension 2 spray INTRANASAL DAILY pregabalin 200 mg capsule 200 mg PO BID [place]-3 Fish Oil 300-1,000 mg Capsule 1 cap PO DAILY pravastatin 40 mg tablet 40 mg PO DAILY losartan 100 mg tablet 100 mg PO QPM Rx Instructions: along with 50mg xz=[id number] total Discontinued metolazone 2.5 mg tablet 2.5 mg PO DAILY PRN (Reason: Edema) Rx Instructions: Take 1 tablet 30 minutes before morning lasix dose, for 3 days. Then continue Lasix alone. Discharge Order = DC NOW: Discharge Order (Routine); Ordered 04/08/25 Ordered By: Torie Hall Referrals: Juanita Mcdonald MD [Physician, Cardiology] - 05/04/25 2:45 pm Referral Note: Kindra Khan DO [Primary Care Provider, Family Practice] - 04/13/25 9:00 am Discharge Diet: Cardiac and Diabetic Discharge Activity: Resume usual activity Patient Instructions: Aspirin (By mouth), Angina (DC), COPD Stoplight, Chest Pain Stoplight, Opioid Safety, Patient Portal & [place] Instructions Discharge Attestations Time Spent in Discharge Care*: less than 30 min Quality Metrics Clinical Quality Measures [ No reported AMI, CVA or VTE this stay] Coding Level of Care Code Acute Code for g Fwd Diagnoses Chest pain R07.9 Coronary artery disease involving sycuan coronary artery of sy[place] heart with angina pectoris I25.119 Associated angina: with unspecified angina Coronary Disease-Associated Artery/Lesion type: [place] artery [place] vs. transplanted heart: sycuan heart Essential hypertension I10 Hypertension type: essential hypertension Smoker F17.200 Diabetes mellitus E11.9 Chronic obstructive pulmonary disease, unspecified COPD type J44.9 COPD type: unspecified COPD
== END 2025-04-08 16:46 | disposition home or self-care (01) ==
LOC: ER 04-08 01:17 → ER IP 04-08 02:20 → MEDSURG 04-08 06:24
PROVIDERS: Admitting Provider Internal Medicine; Emergency Provider Physician Assistant; PCP Family Medicine; Visit Provider Internal Medicine
DX: I25.119 Atherosclerotic heart disease of native coronary artery with unspecified angina pectoris (principal); I10 Essential (primary) hypertension; E11.9 Type 2 diabetes mellitus without complications; J44.9 Chronic obstructive pulmonary disease, unspecified; K21.9 Gastro-esophageal reflux disease without esophagitis; Z79.84 Long term (current) use of oral hypoglycemic drugs; F17.210 Nicotine dependence, cigarettes, uncomplicated; Z79.82 Long term (current) use of aspirin; I25.2 Old myocardial infarction; Z95.5 Presence of coronary angioplasty implant and graft
CPT/HCPCS: 36415; 71045; 80053; 83735; 83880; 84100; 84484; 85025; 85610; 85730; 93005; 93017; 93306; 93350; 96365; 96367; 96372; 96375; 99285; G0378; J1250; J1650; J2270; J3475; J7030; J7050; J9999